=== PATIENT | female | born 1975 | race Caucasian/White ===

== ENCOUNTER → 2021-11-11 | Outpatient (CLI) | payer OTHER, SELFPAY ==
[2021-11-19 13:57] LABS: HPV APTIMA, High Risk Negative (Negative)
== END | disposition home or self-care (01) ==
PROVIDERS: PCP Family Medicine; Visit Provider Obstetrics & Gynecology
DX: Z12.4 Encounter for screening for malignant neoplasm of cervix (principal)
CPT/HCPCS: 87624; 88175; G0145

== ENCOUNTER → 2021-11-18 | Outpatient (CLI) | payer OTHER, SELFPAY ==
--- NOTE | 2021-11-18 15:52 | US_ITS ---
STUDY: ULTRASOUND OF THE FEMALE PELVIS - COMPLETE REASON FOR EXAM: Female, 46 years old. menorrhagia LMP: 11/09/2021. TECHNIQUE: Transabdominal and transvaginal scanning. TECHNICAL QUALITY: Adequate. COMPARISON: Previous ultrasound report of 10/19/2011.. FINDINGS: The uterus is anteverted and is in a midline position. The uterus measures 9.5 x 5.4 x 4.7 cm. Small nabothian cyst incidentally noted within the cervix. The endometrium measures 7 mm in thickness, and is well-defined. There is no demonstrated endometrial mass. The myometrium is inhomogeneous. At least 3 rounded hypoechoic intramural mural lesions are seen indicating multiple intramural fibroids, measuring 2.5 x 1.8 x 2.1 cm, 1.3 x 1.7 x 1.5 cm, and 1.6 x 1.5 x 1.5 cm in diameter. The right ovary is visualized. The right ovary measures 3.2 x 2.4 x 2.2 cm. Right ovary contains a 1.4 x 1.2 x 0.9 cm dominant follicle. There is no visualized right adnexal mass or complex lesion. There is normal arterial and normal venous vascularity. The left ovary is visualized. The left ovary measures 2.2 x 2.1 x 1.4 cm. There is no left ovarian cyst or ovarian mass. There is no visualized left adnexal mass or complex lesion. There is normal arterial and normal venous vascularity. There is no fluid in the cul-de-sac. Echogenic cellular debris is noted within the urinary bladder on the transvaginal scan. US/Pelvic (Non ) IMPRESSION: Multiple small uterine fibroids. Dominant follicle in the left ovary. Echogenic debris within the urinary bladder, as can be seen with cystitis. Electronically Signed: Krish Hummel MD at 3:25 EDT ,
--- NOTE | 2021-11-18 15:52 | US_ITS ---
STUDY: ULTRASOUND OF THE FEMALE PELVIS - COMPLETE REASON FOR EXAM: Female, 46 years old. menorrhagia LMP: 11/09/2021. TECHNIQUE: Transabdominal and transvaginal scanning. TECHNICAL QUALITY: Adequate. COMPARISON: Previous ultrasound report of 10/19/2011.. FINDINGS: The uterus is anteverted and is in a midline position. The uterus measures 9.5 x 5.4 x 4.7 cm. Small nabothian cyst incidentally noted within the cervix. The endometrium measures 7 mm in thickness, and is well-defined. There is no demonstrated endometrial mass. The myometrium is inhomogeneous. At least 3 rounded hypoechoic intramural mural lesions are seen indicating multiple intramural fibroids, measuring 2.5 x 1.8 x 2.1 cm, 1.3 x 1.7 x 1.5 cm, and 1.6 x 1.5 x 1.5 cm in diameter. The right ovary is visualized. The right ovary measures 3.2 x 2.4 x 2.2 cm. Right ovary contains a 1.4 x 1.2 x 0.9 cm dominant follicle. There is no visualized right adnexal mass or complex lesion. There is normal arterial and normal venous vascularity. The left ovary is visualized. The left ovary measures 2.2 x 2.1 x 1.4 cm. There is no left ovarian cyst or ovarian mass. There is no visualized left adnexal mass or complex lesion. There is normal arterial and normal venous vascularity. There is no fluid in the cul-de-sac. Echogenic cellular debris is noted within the urinary bladder on the transvaginal scan. US/Transvaginal Non- IMPRESSION: Multiple small uterine fibroids. Dominant follicle in the left ovary. Echogenic debris within the urinary bladder, as can be seen with cystitis. Electronically Signed: Krish Hummel MD at 3:25 EDT ,
== END | disposition home or self-care (01) ==
LOC: US 15:50
PROVIDERS: PCP Family Medicine; Referring Provider Obstetrics & Gynecology; Visit Provider Obstetrics & Gynecology
DX: N92.0 Excessive and frequent menstruation with regular cycle (principal)
CPT/HCPCS: 76830; 76856

== ENCOUNTER → 2023-11-07 | Outpatient (CLI) | payer OTHER, SELFPAY ==
[2023-11-14 10:10] LABS: HPV APTIMA, High Risk Negative (Negative)
== END | disposition home or self-care (01) ==
LOC: LABSPEC 14:51
PROVIDERS: PCP Family Medicine; Referring Provider Obstetrics & Gynecology; Visit Provider Obstetrics & Gynecology
DX: Z12.4 Encounter for screening for malignant neoplasm of cervix (principal)
CPT/HCPCS: 87624; 88175; G0145

== ENCOUNTER → 2023-11-08 | Outpatient (CLI) | payer OTHER, SELFPAY ==
[2023-11-08 09:05] LABS: Vitamin D,25 Hydroxy 31.2 ng/mL
[2023-11-08 09:13] LABS: Cholesterol 235 mg/dL (200); Estradiol 18.7 pg/mL; Follicle Stimulating Hormone 16.1 mIU/mL; Glucose 91 mg/dL (74-106); High Density Lipoprotein 69 mg/dL; Luteinizing Hormone 11.3 mIU/mL; Triglycerides 91 mg/dL; Very Low Density Lipoprotein 18 mg/dL (5-40)
== END | disposition home or self-care (01) ==
PROVIDERS: PCP Family Medicine; Referring Provider Obstetrics & Gynecology; Visit Provider Obstetrics & Gynecology
DX: Z13.220 Encounter for screening for lipoid disorders (principal); N92.4 Excessive bleeding in the premenopausal period; Z13.1 Encounter for screening for diabetes mellitus; Z13.21 Encounter for screening for nutritional disorder
CPT/HCPCS: 36415; 80061; 82306; 82670; 82947; 83001; 83002; 84443

== ENCOUNTER → 2023-11-16 | Outpatient (CLI) | payer OTHER, SELFPAY ==
--- NOTE | 2023-11-16 16:26 | US_ITS ---
STUDY: ULTRASOUND OF THE FEMALE PELVIS - COMPLETE REASON FOR EXAM: Female, 48 years old. perimenopausal bleeding LMP: 08/05/2023 TECHNIQUE: Transabdominal and Transvaginal TECHNICAL QUALITY: Limited. Examination limited by bowel gas. COMPARISON: None. FINDINGS: The uterus is anteverted and is in a midline position. The uterus measures 10.2 x 5.4 x 5.1 cm. There is a Nabothian cyst of the cervix. Small amount of fluid in the endocervical canal. The endometrium measures 5 mm in thickness, and is hyperechoic. There is no demonstrated endometrial mass. Uterus is diffusely heterogeneous which can be seen with diffuse leiomyomatous change. There is a focal 8 mm fibroid. The right ovary is visualized. The right ovary measures 2.4 x 1.3 x 2.0 cm. There is a 1.6 cm cyst. There is no visualized right adnexal mass or complex lesion. There is normal arterial and normal venous vascularity. The left ovary is visualized. The left ovary measures 3.4 x 2.4 x 2.4 cm. There is a 1.9 cm cyst. There is no visualized left adnexal mass or complex lesion. There is normal arterial and normal venous vascularity. There is no fluid in the cul-de-sac. US/Pelvic w/ Transvaginal IMPRESSION: Limited as above. Enlarged heterogeneous uterus most likely related to diffuse leiomyomatous change. Small amount of fluid in the endocervical canal. Endometrial echoes are not thickened. Electronically Signed: Lupillo Gonzales MD at 23:49 EDT ,
== END | disposition home or self-care (01) ==
LOC: US 16:26
PROVIDERS: PCP Family Medicine; Referring Provider Obstetrics & Gynecology; Visit Provider Obstetrics & Gynecology
DX: N92.4 Excessive bleeding in the premenopausal period (principal)
CPT/HCPCS: 76830; 76856

== ENCOUNTER → 2023-12-11 | Outpatient (CLI) | payer OTHER, SELFPAY ==
--- NOTE | 2023-12-11 | EMB_PTH ---
PATHOLOGY RESULTS PATIENT: PEDRO LUIS WALLER LOC: [facility] U#:[id number] AGE/SX: 48/F ROOM: RE12/11/[address]: Dr. Darlene Murry DO : 1975 BED: DIS: 12/11/2023 SPEC #: [id number] RECD: 12/11/23 13:10 STATUS: DENISE ROSARIO #: [id number] SARTHAK: 12/11/23 00:[address]: Darlene Murry DEPT: SURGICAL PATHOLOGY RECD BY: Andrea Cuevas ENTERED: 12/11/23 13:10 SP TYPE: ENDOM BX/C OTHR DR: Dr. Dalton Andrea MD Tissues: Endometrium, NOS Procedures: Surgery Specimen Level IV HEADER OPERATION: Endometrial biopsy PRE-OP DIAGNOSIS: Abnormal uterine bleeding TISSUE SUBMITTED: Endometrial lining MICROSCOPIC DIAGNOSIS Endometrial biopsy: Proliferative endometrium. A few fragments of benign endocervical mucosa and mucous. See comment. SJ.mr 12/12/2023 COMMENT The specimen predominantly consists of mucoid tissue. MICROSCOPIC DESCRIPTION Slides are reviewed. GROSS DESCRIPTION Received is one container labeled with the patient's name and not further designated. The specimen consists of multiple irregular fragments of ruiz soft tissue mixed with mucoid tissue that in aggregate measure 2.5 x 1.0 x 0.1 cm. The specimen is totally submitted in one cassette. 12/11/2023 TC:4 CPT:70894
--- OUTSIDE RECORDS SUMMARY | 2023-12-11 11:00 | XMS RPT_ITS | CCD ---
Author Organization [facility] Care Team Providers Care T[employer] Finisher Name Role Phone PROVIDER, UNKNOWN Attending Unavailable PROVIDER, UNKNOWN Admitting Unavailable PROVIDER, UNKNOWN Attending Unavailable PROVIDER, UNKNOWN Admitting Unavailable PATIENT, SELF Referring Unavailable Bill Blackwell Unavailable Paz Asif MD Unavailable Deb Haque Unavailable Daniel Bowden MD Primary Care Provider Bill Blackwell Unavailable Paz Asif MD Unavailable Rip VILLAR, Deb Unavailable Daniel Bowden MD Primary Care Provider Bill Blackwell Unavailable Paz Asif MD Unavailable Deb Haque Unavailable Daniel Bowden MD Primary Care Provider KIMMIE HALE Attending Unavailable DANIEL BOWDEN Primary Care Unavailable JOHANNA CRONIN Referring Unavailable DANIEL BOWDEN Primary Care Unavailable DANIEL BOWDEN Primary Care Unavailable DANIEL BOWDEN Primary Care Unavailable Allergies Allergy Classification Reported Allergen(s) Allergy Type Date of Onset Reaction(s) Facility (20 sources) Butorphanol; Translations: [BUTORPHANOL] Drug Allergy 1 Mental Status Change [facility] Medications Current Medications Medication Drug Class(es) Dates Sig (Normalized) Sig (Original) hydrOXYzine hydrochloride 25 mg oral tablet (3 sources) Antihistamine Start: 03-27-2023 End: 09-23-2023 take 1 tablet by mouth at bedtime as needed for anxiety hydrOXYzine HCl (ATARAX) 25 mg tablet Indications: Anxiety with depression , Difficulty sleeping Take 1 tablet by mouth at bedtime as needed for anxiety. 30 tablet 5 03/27/2023 09/23/2023 Active Start: 08-31-2022 End: 09-30-2022 take 1 tablet by mouth at bedtime as needed for anxiety hydrOXYzine HCl (ATARAX) 25 mg tablet Indications: Anxiety with depression , Difficulty sleeping Take 1 tablet by mouth at bedtime as needed for anxiety. 30 tablet 5 08/31/2022 09/30/2022 Active Comment on above: Take 1 tablet by dominick th at bedtime as needed for anxiety. ibuprofen 800 mg oral tablet (19 sources) Nonsteroidal Anti-inflammatory Drug Start: take 1 tablet by mouth every eight hours as needed ibuprofen (MOTRIN) 800 mg ORAL tablet Take 1 tablet by mouth three times daily as needed. FOR PAIN. TAKE WITH FOOD. 30 tablet 0 02/03/2011 Active Comment on above: Take 1 tablet by dominick th three times daily as needed. FOR PAIN. TAKE WITH FOOD. iv contrast (will be provided with radiology test) (1 source) Start: End: iv contrast (will be provided with radiology test) MRI ankle RT Inject, intravenously, once for 1 dose. No IV access, insert saline lock prior to the beginning of sedation, infusion, injection of imaging exam. Discontinue saline lock post exam. If Pt. has a central line or IVAD, may access for administration according to line specific nursing protocol. Once exam is complete flush line and de-access according to line specific nursing protocol in the MR contrast administration guidelines link. 1 Each 0 09/02/2022 09/03/2022 Active Comment on above: MRI ankle RT Inject, intravenously, once for 1 dose. No IV access, insert saline lock prior to the beginning of sedation, infusion, injection of imaging exam. Discontinue saline lock post exam. If Pt. has a central line or IVAD, may access for administration according to line specific nursing protocol. Once exam is complete flush line and de-access according to line specific nursing protocol in the MR contrast administration guidelines link. nitrofurantoin, macrocrystals 25 mg / nitrofurantoin, monohydrate 75 mg oral capsule (1 source) Nitrofuran Antibacterial Start: 023 End: 023 take 1 capsule by mouth twice daily nitrofurantoin monohydrate and macrocrystal (MACROBID) 100 mg capsule Indications: Acute cystitis without hematuria Take 1 capsule by mouth two times a day for 5 days. 10 capsule 0 12/27/2022 01/01/2023 Active Comment on above: Take 1 capsule by mo [facility] two times a day for 5 days. nystatin 293134 unt/ml topical cream (3 sources) Polyene Antifungal Start: nystatin (MYCOSTATIN) 307231 UNIT/GM cream Apply topically 2 times daily. Apply thin layer to affected area. 30 g 3 05/02/2019 Active PARoxetine hydrochloride 10 mg oral tablet (11 sources) Serotonin Reuptake Inhibitor Start: 024 End: 025 take 1 tablet by mouth once daily PARoxetine (PAXIL) 10 mg tablet Indications: Anxiety with depression , Night sweats Take 1 tablet by mouth once daily. Take with Paxil 40 mg tablet. 30 tablet 5 11/29/2023 05/27/2024 Active Start: 03-27-2023 End: 03-26-2024 take 1 tablet by mouth once daily PARoxetine (PAXIL) 40 mg tablet Indications: Hot flashes , Anxiety with depression Take 1 tablet by mouth once daily. 90 tablet 3 03/27/2023 03/26/2024 Active Start: 08-31-2022 End: 09-30-2022 take 1 tablet by mouth once daily PARoxetine (PAXIL) 40 mg tablet Indications: Hot flashes , Anxiety with depression Take 1 tablet by mouth once daily. 30 tablet 5 08/31/2022 Active Comment on above: Take 1 tablet by [facility] once daily. phentermine hydrochloride 37.5 mg oral tablet (1 source) Sympathomimetic Amine Anorectic Start: 2021 End: 2021 take 1 tablet by mouth once daily Phentermine HCl (ADIPEX-P) 37.5 mg tablet Indications: Obesity, Class II, BMI 35-39.9 Take 1 tablet by mouth once daily for 30 days. 30 tablet 0 06/17/2021 07/17/2021 Active Comment on above: Take 1 tablet by dominick once daily for 30 days. tirzepatide 10 mg/0.5 mL (20 mg/mL) subcutaneous compounded injection (1 source) inject 10 mg by subcutaneous injection every week tirzepatide 10 mg/0.5 mL (20 mg/mL) subcutaneous compounded injection Inject 10 mg subcutaneously one time a week. Active valACYclovir 1000 mg oral tablet (3 sources) Herpesvirus Nucleoside Analog DNA Polymerase Inhibitor, Herpes Simplex Virus Nucleoside Analog DNA Polymerase Inhibitor, Herpes Zoster Virus Nucleoside Analog DNA Polymerase Inhibitor Start: 2019 take 2 tablets by mouth once valACYclovir (VALTREX) 1 GM tablet take 2 tablets by mouth ONE TIME DOSE 0 11/09/2019 Active Completed/Discontinued Medications Medication Drug Class(es) Dates Sig (Normalized) Sig (Original) hydroCHLOROthiazide 25 mg / triamterene 37.5 mg oral capsule (20 sources) Potassium-spari ng Diuretic, Thiazide Diuretic Start: 04-14-2021 End: 11-28-2024 take 1 capsule by mouth once daily triamterene-hydro CHLOROthiazide (DYAZIDE) 37.5-25 mg per capsule Indications: Essential hypertension Take 1 capsule by mouth once daily. 30 capsule 11/28/2023 11/29/2023 Discontinued Start: 03-16-2018 take 1 capsule by mouth once triamterene-hydrochlorothiazide (DYAZIDE ) 37.5-25 MG per capsule Take 1 Capsule by mouth. 0 03/16/2018 Active Comment on above: Take 1 capsule by mo [facility] once daily. lisinopril 10 mg oral tablet (17 sources) Angiotensin Converting Enzyme Inhibitor Start: 2 End: 5 take 1 tablet by mouth once daily lisinopril (ZESTRIL) 10 mg tablet Indications: Essential hypertension Take 1 tablet by mouth once daily. 30 tablet 11/28/2023 11/29/2023 Discontinued Comment on above: Take 1 tablet by dominick once daily. sertraline 100 mg oral tablet (16 sources) Serotonin Reuptake Inhibitor Start: 9 End: 3 take 1 tablet by mouth once daily sertraline (ZOLOFT) 50 mg tablet Take 1 tablet by mouth once daily. Take along with the 100 mg tablet for a total of 150 mg daily 90 tablet 3 04/14/2021 08/31/2022 Discontinued Start: 09-12-2018 End: 08-31-2022 take 1 tablet by mouth once daily sertraline (ZOLOFT) 100 mg tablet Indications: SHASHI (generalized anxiety disorder) Take 1 tablet by mouth once daily. 90 tablet 3 04/14/2021 08/31/2022 Discontinued Comment on above: Take 1 tablet by dominick th once daily. Take along with the 100 mg tablet for a total of 150 mg daily Take 1 tablet by dominick th once daily. Problems Active Problems Problem Classification Problem Date Documented Date Episodic/Chronic Anxiety disorders (5 sources) Mixed anxiety and depressive disorder; Translations: [Other specified anxiety disorders] Onset: 11-29-2023 10-03-2022 Chronic Essential hypertension (20 sources) Essential hypertension; Translations: [Essential (primary) hypertension] Onset: 02-14-2017 05-09-2019 Chronic Nonmalignant breast conditions (20 sources) Hypertrophy of breast; Translations: [Hypertrophy of breast] Onset: 12-23-2016 05-09-2019 Episodic Other connective tissue disease (3 sources) Ganglion of foot; Translations: [Ganglion, unspecified ankle and foot] 09-02-2022 Episodic Other female genital disorders (1 source) Vaginal dryness; Translations: [Other specified noninflammatory disorders of vagina] 10-05-2022 Episodic Other female genital disorders (1 source) Other specified noninflammatory disorders of vagina; Translations: [Vaginal dryness] Onset: 11-29-2023 Episodic Other female genital disorders (1 source) Enlarged uterus; Translations: [Hypertrophy of uterus] 11-29-2023 Episodic Other nutritional; endocrine; and metabolic disorders (1 source) Obese class II; Translations: [Obesity, unspecified] Chronic Other nutritional; endocrine; and metabolic disorders (1 source) Obesity; Translations: [Class 1 obesity with body mass index (BMI) of 31.0 to 31.9 in adult, unspecified obesity type, unspecified whether serious comorbidity present] 11-29-2023 Chronic Other screening for suspected conditions (not mental disorders or infectious disease) (6 sources) Patient encounter status; Translations: [Encounter for screening mammogram for malignant neoplasm of breast] Episodic Other skin disorders (1 source) Night sweats; Translations: [Generalized hyperhidrosis] 11-29-2023 Episodic Other skin disorders (1 source) Nodule of skin of foot; Translations: [Localized swelling, mass and lump, unspecified lower limb] 11-29-2023 Episodic Residual codes; unclassified (3 sources) Flushing; Translations: [Flushing] 10-03-2022 Episodic Residual codes; unclassified (1 source) Difficulty sleeping ; Translations: [Sleep disorder, unspecified] 03-27-2023 Episodic Residual codes; unclassified (1 source) Sleep disorder, unspecified; Translations: [Difficulty sleeping] Onset: 11-29-2023 Episodic Residual codes; unclassified (1 source) Flushing; Translations: [Hot flashes] Onset: 11-29-2023 Episodic Unclassified (1 source) NO SHOW 12-27-2022 Urinary tract infections (1 source) Acute cystitis; Translations: [Acute cystitis without hematuria] 12-27-2022 Episodic Past or Other Problems Problem Classification Problem Date Documented Da te Episodic/Chronic Other connective tissue disease (1 source) Ganglion, unspecified ankle and foot; Translations: [Ganglion cyst of foot] Onset: 12-29-2022 Episodic Results Test Name Value Interpretation Reference Range Facility [facility] 11-29-2023 [facility] ROXANE FREDERICK ([id number]) 1975 F Date Time Provider Department 11/29/23 10:40 AM [facility]MIE HALE [facility] During your visit today, we recorded the following information about you: Pulse Respiration Blood pressure Weight 83/minute 16/minute 104/72 73.4 kg Height 1.535 m Kimmie Hale APRN.CNP 11/29/2023 12:54 PM Signed This is a 48 year old female who presents today with: Patient presents with: Physical HISTORY OF PRESENT ILLNESS: Roxane Frederick is a 48 year old female. Patient presents with: Physical Wellness Exam Diet: Eating a well balanced diet. Exercise: [place] Vision: Had Lasik surgery. Dental: Due for dental. Sleep:8 hours per night. Mood: See below. Following with Daniels weight loss. Taking tirzepatide. Doing well with medication. Watching diet. HTN: Taking lisinopril 10 mg daily and triamterene/HCTZ 37.5/25 mg daily . Not currently checking blood pressure at home. Denies chest pain, palpitations, dizziness, or edema. Depression/SHASHI: Taking Paxil 40 mg daily. Hydroxyzine 25 mg prn. Denies any increased sadness or SI/HI. Had pap last week with ENROLLMENT MANAGER at [facility], had transvaginal US completed, was told she had enlarged uterus. Will be having biopsy next week. Night sweats started last week. At night, waking up soaking wet with sweat. Some lower abdominal fullness. TSH WNL. Right foot cyst, following with podiatry, attempted to aspirate without success. Cyst has moved. Causing pain. Has follow up soon. Mammogram: Due this year Colonoscopy:Cologuar d September 2022 Negative due in 2025 Pap: Last Pap January. [facility] ENROLLMENT MANAGER. PAST MEDICAL HISTORY: PAST MEDICAL HISTORY Diagnosis Date Hypertension Macromastia Needs 3D tulio for screening, causing neck, back problems, headaches, shoulder pain PAST SURGICAL HISTORY Procedure Laterality Date ANKLE SURGERY HX 06/20/2012 pins put in HYSTEROSCOPY BI TUBE OCCLUSION W/PERM IMPLNTS LAPAROSCOPY DIAGNOSTIC removal of tubes bilaterally. dilation of cervix to relieve hematometria PAST SURGICAL HISTORY OF N/A 01/10/2020 Tummy Tuck REDUCTION OF LARGE BREAST Bilateral 01/10/2020 S THERMACHOICE UTERINE BALLOON TONSILLECTOMY AND ADENOIDECTOMY AGE 10/> ALLERGIES Stadol [Butorphanol] MEDICATIONS Current Outpatient Medications Medication Sig triamterene-hydroCHL OROthiazide (DYAZIDE) 37.5-25 mg per capsule Take 1 capsule by mouth once daily. lisinopril (ZESTRIL) 10 mg tablet Take 1 tablet by mouth once daily. PARoxetine (PAXIL) 40 mg tablet Take 1 tablet by mouth once daily. ibuprofen (MOTRIN) 800 mg ORAL tablet Take 1 tablet by mouth three times daily as needed. FOR PAIN. TAKE WITH FOOD. No current facility-administere d medications for this visit. FAMILY HISTORY Problem Relation Age of Onset None Mother Heart Father Congenital disorder Hypertension Father Social History Tobacco Use Smoking status: Never Smokeless tobacco: Never Substance Use Topics Alcohol use: Yes Comment: Socially Drug use: No REVIEW OF SYSTEMS GENERAL: Night sweats/hot flashes HEENT: Negative for frequent or significant headaches, No changes in hearing or vision. NECK: Negative for lumps, goiter, pain and significant neck swelling RESPIRATORY: Negative for cough, hemoptysis, wheezing, dyspnea or shortness of breath CARDIOVASCULAR: Negative for chest pain, leg swelling, orthopnea, or palpitations GI: No nausea, vomiting, or diarrhea/constipatio n. No hematochezia/melena. No heartburn or reflux symptoms. : No history of dysuria, frequency or incontinence MUSCULOSKELETAL: Negative for joint pain or swelling. SKIN: Negative for lesions, rash, and itching ENDOCRINE: Negative for cold or heat intolerance, polyuria, polydipsia and goiter NEURO: No history of headaches, syncope, paralysis, seizures or tremors MOOD: Negative for depression, anxiety, or suicidal ideation. EXAM: BP 104/72 Pulse 83 Resp 16 Ht 153.5 cm (5' 0.43 ) Wt 73.4 kg (161 lb 13.1 oz) LMP 04/27/2013 SpO2 98% BMI 31.15 kg/m? PHYSICAL EXAM: General Appearance: Well appearing, alert, in no acute distress, well-hydrated, well nourished. Skin: Skin color, texture, turgor normal, no suspicious rashes or lesions. Head: Normocephalic, no masses, lesions, tenderness or abnormalities. Eyes: Anicteric sclera. Pupils are equally round and reactive to light. Extraocular movements are intact. Ears: External ears normal, canals clear. TMs pearly tucker Neck: Supple, no adenopathy; thyroid symmetric, normal size, no bruits. Lungs: Lungs clear to auscultation. No wheezing, rhonchi, rales. Heart: RRR without murmur, gallop, or rubs. No ectopy. Abdomen: Abdomen soft, non-tender. Bowel sounds normal. No masses, organomegaly. Extremities: No deformities, edema, skin discoloration, clubbing or cyanos (more content not included)... Normal [facility] ASP/INJ GANGLION RTon US ASP/INJ GANGLION RT * * *Final Report* * * DATE OF EXAM: Dec 29 2022 1:52PM [facility] 1157 - US ASP/INJ GANGLION RT / PROCEDURE REASON: Ganglion cyst of foot * * * * Physician Interpretation * * * * MSK_US ULTRASOUND GUIDED RIGHT DORSOLATERAL FOOT GANGLION CYST ASPIRATION, FENESTRATION, AND THERAPEUTIC INJECTION INDICATION: The patient is a 47 year old female who presented for aspiration and therapeutic injection of a right dorsolateral foot ganglion cyst. CONSENT: The risks, benefits, treatment options, potential complications and personnel to be involved were discussed with the patient. All questions were answered and consent was obtained. The patient indicated willingness to proceed. GENERAL: a) Pre-procedure Sign-in: Safety Checklist Performed Yes b) Positioning: The patient was placed supine on the ultrasound table. c) Ultrasound guidance was used to target the ganglion cyst in the right dorsolateral forefoot. The right dorsolateral forefoot was then sterilely prepped and draped. Ultrasound images were saved and sent to a permanent archive. d) Time Out: A time out was performed immediately prior to procedure start. Procedure Start Time / Timeout Time: 13:25 e) Anesthesia Type: Local anesthesia: 3 mL 1% Lidocaine PRE-PROCEDURE IMAGING: Imaging was performed for the purposes of localization. PROCEDURE: a) Procedure Details: A 22g needle was inserted into the ganglion cyst using ultrasound guidance after local anesthesia. 1 mL of gelatinous fluid was aspirated. Additional 1% lidocaine was deposited into an adjacent to the cyst and the 22-gauge needle was used to fenestrate the cyst rolon and septae. Next, an 18-gauge needle was inserted into the cyst and approximately 2 mL of gelatinous fluid was aspirated. Finally, 1 mL of dexamethasone was injected into the cyst. The needle was removed. Images were stored to the digital archive documenting needle position. b) Injectate Contents: 1 mL Dexamethasone Sodium Phosphate (4 mg/ml) c) Estimated Blood Loss: 0 mL d) Removed Specimens: Approximately 3 mL gelatinous cyst fluid, discarded. POST PROCEDURE: a) Hemostasis: Hemostasis was achieved using light manual compression. b) Sign-out: Communication Performed N/A c) Procedure End Time: 13:38 d) Conclusion: 1. Post-Procedure instructions:Verbal instructions were given. 2. The patient was discharged from the radiology department in stable condition. COMPLICATIONS: a) Significant Patient Complication: None b) Complications during the procedure: None RESULTS: Uncomplicated right foot dorsolateral ganglion cyst aspiration, fenestration, and therapeutic injection. IMPRESSION: SUCCESSFUL ULTRASOUND GUIDED ASPIRATION, FENESTRATION, AND INJECTION OF THE RIGHT DORSOLATERAL FOOT GANGLION CYST, DESCRIBED ABOVE. Attending Radiologist: Dr. Mtai Akins MD Combination Operator: Dr. Kanu Boothe MD The procedure was performed by the regulatory affairs assistant, and the attending radiologist personally supervised the entire procedure. Instructor Military Science: [facility] Transcribe Date/Time: Dec 29 2022 2:35P Dictated by : KANU BOOTHE MD This examination was interpreted and the report reviewed and electronically signed by: MATI AKINS MD on Dec 29 2022 3:03PM EST [id number] Normal [facility] US Guidance for aspiration o f cyst of Unspecified body regionon 12-29-2022 IMPRESSION: SUCCESSFUL ULTRASOUND GUIDED ASPIRATION, FENESTRATION, AND INJECTION OF THE RIGHT DORSOLATERAL FOOT GANGLION CYST, DESCRIBED ABOVE. Attending Radiologist: Dr. Mati Akins MD Combination Operator: Dr. Kanu Boothe MD The procedure was performed by the regulatory affairs assistant, and the attending radiologist personally supervised the entire procedure. Instructor Military Science: [facility] Transcribe Date/Time: Dec 29 2022 2:35P Dictated by : KANU BOOTHE MD This examination was interpreted and the report reviewed and electronically signed by: MATI AKINS MD on Dec 29 2022 3:03PM EST DIVISION OF RADIOLOGY * * *Final Report* * * DATE OF EXAM: Dec 29 2022 1:52PM [facility]7 - US ASP/INJ GANGLION RT / PROCEDURE REASON: Ganglion cyst of foot * * * * Physician Interpretation * * * * MSK_US ULTRASOUND GUIDED RIGHT DORSOLATERAL FOOT GANGLION CYST ASPIRATION, FENESTRATION, AND THERAPEUTIC INJECTION INDICATION: The patient is a 47 year old female who presented for aspiration and therapeutic injection of a right dorsolateral foot ganglion cyst. CONSENT: The risks, benefits, treatment options, potential complications and personnel to be involved were discussed with the patient. All questions were answered and consent was obtained. The patient indicated willingness to proceed. GENERAL: a) Pre-procedure Sign-in: Safety Checklist Performed Yes b) Positioning: The patient was placed supine on the ultrasound table. c) Ultrasound guidance was used to target the ganglion cyst in the right dorsolateral forefoot. The right dorsolateral forefoot was then sterilely prepped and draped. Ultrasound images were saved and sent to a permanent archive. d) Time Out: A time out was performed immediately prior to procedure start. Procedure Start Time / Timeout Time: 13:25 e) Anesthesia Type: Local anesthesia: 3 mL 1% Lidocaine PRE-PROCEDURE IMAGING: Imaging was performed for the purposes of localization. PROCEDURE: a) Procedure Details: A 22g needle was inserted into the ganglion cyst using ultrasound guidance after local anesthesia. 1 mL of gelatinous fluid was aspirated. Additional 1% lidocaine was deposited into an adjacent to the cyst and the 22-gauge needle was used to fenestrate the cyst rolon and septae. Next, an 18-gauge needle was inserted into the cyst and approximately 2 mL of gelatinous fluid was aspirated. Finally, 1 mL of dexamethasone was injected into the cyst. The needle was removed. Images were stored to the digital archive documenting needle position. b) Injectate Contents: 1 mL Dexamethasone Sodium Phosphate (4 mg/ml) c) Estimated Blood Loss: 0 mL d) Removed Specimens: Approximately 3 mL gelatinous cyst fluid, discarded. POST PROCEDURE: a) Hemostasis: Hemostasis was achieved using light manual compression. b) Sign-out: Communication Performed N/A c) Procedure End Time: 13:38 d) Conclusion: 1. Post-Procedure instructions:Verbal instructions were given. 2. The patient was discharged from the radiology department in stable condition. COMPLICATIONS: a) Significant Patient Complication: None b) Complications during the procedure: None RESULTS: Uncomplicated right foot dorsolateral ganglion cyst aspiration, fenestration, and therapeutic injection. DIVISION OF RADIOLOGY Provider, [facility] [place] - 12/29/2022 * * *Final Report* * * DATE OF EXAM: Dec 29 2022 1:52PM [facility] - US ASP/INJ GANGLION RT / PROCEDURE REASON: Ganglion cyst of foot * * * * Physician Interpretation * * * * MSK_US ULTRASOUND GUIDED RIGHT DORSOLATERAL FOOT GANGLION CYST ASPIRATION, FENESTRATION, AND THERAPEUTIC INJECTION INDICATION: The patient is a 47 year old female who presented for aspiration and therapeutic injection of a right dorsolateral foot ganglion cyst. CONSENT: The risks, benefits, treatment options, potential complications and personnel to be involved were discussed with the patient. All questions were answered and consent was obtained. The patient indicated willingness to proceed. GENERAL: a) Pre-procedure Sign-in: Safety Checklist Performed Yes b) Positioning: The patient was placed supine on the ultrasound table. c) Ultrasound guidance was used to target the ganglion cyst in the right dorsolateral forefoot. The right dorsolateral forefoot was then sterilely prepped and draped. Ultrasound images were saved and sent to a permanent archive. d) Time Out: A time out was performed immediately prior to procedure start. Procedure Start Time / Timeout Time: 13:25 e) Anesthesia Type: Local anesthesia: 3 mL 1% Lidocaine PRE-PROCEDURE IMAGING: Imaging was performed for the purposes of localization. PROCEDURE: a) Procedure Details: A 22g needle was inserted into the ganglion cyst using ultrasound guidance after local anesthesia. 1 mL of gelatinous fluid was aspirated. Additional 1% lidocaine was deposited into an adjacent to the cyst and the 22-gauge needle was used to fenestrate the cyst rolon and septae. Next, an 18-gauge needle was inserted into the cyst and approximately 2 mL of gelatinous fluid was aspirated. Finally, 1 mL of dexamethasone was injected into the cyst. The needle was removed. Images were stored to the digital archive documenting needle position. b) Injectate Contents: 1 mL Dexamethasone Sodium Phosphate (4 mg/ml) c) Estimated Blood Loss: 0 mL d) Removed Specimens: Approximately 3 mL gelatinous cyst fluid, discarded. POST PROCEDURE: a) Hemostasis: Hemostasis was achieved using light manual compression. b) Sign-out: Communication Performed N/A c) Procedure End Time: 13:38 d) Conclusion: 1. Post-Procedure instructions:Verbal instructions were given. 2. The patient was discharged from the radiology department in stable condition. COMPLICATIONS: a) Significant Patient Complication: None b) Complications during the procedure: None RESULTS: Uncomplicated right foot dorsolateral ganglion cyst aspiration, fenestration, and therapeutic injection. IMPRESSION IMPRESSION: SUCCESSFUL ULTRASOUND GUIDED ASPIRATION, FENESTRATION, AND INJECTION OF THE RIGHT DORSOLATERAL FOOT GANGLION CYST, DESCRIBED ABOVE. Attending Radiologist: Dr. Mati Akins MD Combination Operator: Dr. Kanu Boothe MD The procedure was performed by the regulatory affairs assistant, and the attending radiologist personally supervised the entire procedure. Instructor Military Science: [facility] HOSPITAL[facility]ia Transcribe Date/Time: Dec 29 2022 2:35P Dictated by : KANU BOOTHE MD This examination was interpreted and the report reviewed and electronically signed by: MATI AKINS MD on Dec 29 2022 3:03PM EST [facility] Radiology Study observation (narrative) [facility] US Guidance for aspiration o f cyst of Unspecified body regionOrdered By: Ccf Provider on 12-29-2022 [facility] ic MG Breast - left Diagnostic for implanton 09-30-2021 IMPRESSION: PROBABLY BENIGN - SHORT TERM INTERVAL FOLLOW-UP RECOMMENDED The multiple coarse calcifications in the left breast are probably benign. A follow-up mammogram in 6 months is recommended to demonstrate stability. Myles monroy/olga:09/30/2021 14:55:23 Assistant Hairstylist(s): RT Jose(R)(M), [facility] BI-RADS: 3 Probably benign finding - short term interval follow-up recommended Multiple national specialty organizations have released breast cancer screening guidelines for women at average risk for developing breast cancer - guidelines that are based on both evidence and opinion, yet differ on when to start and how often to screen for breast cancer. With representation from Breast Imaging, Internal Medicine, Women's Health, Family Medicine, and Medical/Surgical Oncology, the [facility] has carefully reviewed the data and reached the following consensus: 1) All women should engage in shared decision-making with their providers to decide when to start and how often to screen; 2) All women should have the opportunity to start screening mammography at age 40; 3) For women ages 45-55, we recommend annual screening mammograms; 4) For women ages 55 and over, we support both the transition from an annual to a biennial interval if this aligns more with patient's values and preferences, or continuation with annual screening; 5) All women should discuss with their providers when to stop screening mammograms. Instructor Military Science: Olga Transcribe Date/Time: Sep 30 2021 2:16P Dictated by: MYLES RAMIREZ MD This examination was interpreted and the report reviewed and electronically signed by: MYLES RAMIREZ MD on Sep 30 2021 2:55PM EST ZZZ_DO_NOT_USE_D IVISION OF RADIOLOGY * * *Final Report* * * DATE OF EXAM: Sep 30 2021 2:29PM [facility] 0621 - [facility] DIAGNOSTIC LT / PROCEDURE REASON: Abnormal mammogram * * * * Physician Interpretation * * * * RESULT: #[id number] - [facility] DIAGNOSTIC LT UNILATERAL LEFT DIGITAL DIAGNOSTIC MAMMOGRAM WITH CAD: 09/30/2021 HISTORY: Abnormal Mammogram / Call back/abnormal mamm: Left. RESULT: TECHNIQUE: The study was acquired using full field digital technology and interpreted from soft copy. Current study was also evaluated with a Computer Aided Detection (CAD). Comparison is made to exams dated: 09/14/2021 mammogram, 07/09/2019 mammogram, 07/09/2019 mammogram, and 06/20/2019 mammogram - [facility]. The tissue of left breast is heterogeneously dense. This may lower the sensitivity of mammography. The patient is status post reduction left breast. The left breast has post-operative findings. There are multiple coarse calcifications in the left breast upper inner aspect middle depth. No other significant masses or calcifications are seen in the breast. ZZZ_[id number]_USE_D IVISION OF RADIOLOGY Provider, [facility] - 09/30/2021 * * *Final Report* * * DATE OF EXAM: Sep 30 2021 2:29PM [facility] 0621 - [facility] DIAGNOSTIC LT / PROCEDURE REASON: Abnormal mammogram * * * * Physician Interpretation * * * * RESULT: #[id number] - [facility] DIAGNOSTIC LT UNILATERAL LEFT DIGITAL DIAGNOSTIC MAMMOGRAM WITH CAD: 09/30/2021 HISTORY: Abnormal Mammogram / Call back/abnormal mamm: Left. RESULT: TECHNIQUE: The study was acquired using full field digital technology and interpreted from soft copy. Current study was also evaluated with a Computer Aided Detection (CAD). Comparison is made to exams dated: 09/14/2021 mammogram, 07/09/2019 mammogram, 07/09/2019 mammogram, and 06/20/2019 mammogram - [facility]. The tissue of left breast is heterogeneously dense. This may lower the sensitivity of mammography. The patient is status post reduction left breast. The left breast has post-operative findings. There are multiple coarse calcifications in the left breast upper inner aspect middle depth. No other significant masses or calcifications are seen in the breast. IMPRESSION IMPRESSION: PROBABLY BENIGN - SHORT TERM INTERVAL FOLLOW-UP RECOMMENDED The multiple coarse calcifications in the left breast are probably benign. A follow-up mammogram in 6 months is recommended to demonstrate stability. Myles monroy/olga:09/30/2021 14:55:23 Assistant Hairstylist(s): RT Jose(R)(M), [facility] BI-RADS: 3 Probably benign finding - short term interval follow-up recommended Multiple national specialty organizations have released breast cancer screening guidelines for women at average risk for developing breast cancer - guidelines that are based on both evidence and opinion, yet differ on when to start and how often to screen for breast cancer. With representation from Breast Imaging, Internal Medicine, Women's Health, Family Medicine, and Medical/Surgical Oncology, the [facility] has carefully reviewed the data and reached the following consensus: 1) All women should engage in shared decision-making with their providers to decide when to start and how often to screen; 2) All women should have the opportunity to start screening mammography at age 40; 3) For women ages 45-55, we recommend annual screening mammograms; 4) For women ages 55 and over, we support both the transition from an annual to a biennial interval if this aligns more with patient's values and preferences, or continuation with annual screening; 5) All women should discuss with their providers when to stop screening mammograms. Instructor Military Science: Olga Transcribe Date/Time: Sep 30 2021 2:16P Dictated by: MYLES RAMIREZ MD This examination was interpreted and the report reviewed and electronically signed by: MYLES RAMIREZ MD on Sep 30 2021 2:55PM EST [facility] Radiology Study observation (narrative) [facility] MG Breast - left Diagnostic for implantOrdered By: Ccf Provider on 09-30-2021 [facility] ic ELOISE SCREENINGon 09-14-2021 [facility] ic Progress Noteson 01-28-2021 [employer] Authentication Interface Message Text PLASTIC SURGERY FOLLOW-UP NOTE SUBJECTIVE: Ms. Ferderick is status post breast reduction and abdominoplasty. Feeling well, overall pleased with her results. Concerned about fullness at the ends of her incisions Patient has small dog ear in the lateral chest wall of the breast bilaterally, patient also has a upper roll which goes all the way to the back In lower part patient's has fullness in the flank which goes all the way to the midline Different options discussed, will send quote for 2 options - dog ear excision of the lateral chest wall in the office - upper back lift and lower back left in the OR total of 3 hours estimated time Surgery, incision and postoperative course discussed with patient in details, complications including but not limited to infection, bleeding, neurovascular damage, asymmetry, need for revision discussed with patient, patient seemed to understand and wanted to proceed with surgery. Paz Asif MD Normal [employer] Progress Noteson 06-01-2020 [employer] Authentication Interface Message Text PLASTIC SURGERY FOLLOW-UP NOTE SUBJECTIVE: Ms. Frederick is status post breast reduction and abdominoplasty. Feeling well, overall pleased with her results. Concerned about fullness at the ends of her incisions OBJECTIVE: On physical exam, Ms. Frederick has the following findings; Incisions well healed Dog ears right abdomen and bilateral lateral chest Good breast symmetry ASSESSMENT: Dog ears PLAN: 1. Discussed possible revision Will see Dr. Asif for surgical planning Bill Munoz APRN-CARLOS ENRIQUE Normal [employer] Progress Noteson 05-12-2020 [employer] Authentication Interface Message Text Patient was identified by name and date of . Pita Dove Patient at risk for falls:No Falls Risk protocol implemented: No Normal [employer] Vital Signs Date Time Vital Sign Value Performing Clinician Isa hess 11-29-2023 10:34-0400 Body height 153.5 cm Kimmie Hale APRN.CNP Work Phone: [facility] 11-29-2023 10:34-0400 Body mass index (BMI) [Ratio] 31.15 kg/m2 Kimmie Hale APRN.CNP Work Phone: [facility] 11-29-2023 10:34-0400 Body weight 73.4 kg Kimmie Hale APRN.CNP Work Phone: [facility] 11-29-2023 10:34-0400 Diastolic blood pressure 72 mm[Hg] Kimmie Hale APRN.CNP Work Phone: [facility] 11-29-2023 10:34-0400 Heart rate 83 /min Kimmie Hale APRN.CNP Work Phone: [facility] 11-29-2023 10:34-0400 Respiratory rate 16 /min Kimmie Tannhof SENIOR [employer] NET DEVELOPER.PATCH SANDER Work Phone: [facility] 11-29-2023 10:34-0400 SaO2% (BldA) [Mass fraction] 98 % Kimmie Tannhof [employer]ENIOR [employer] NET DEVELOPER.PATCH SANDER Work Phone: [facility] 11-29-2023 10:34-0400 Systolic blood pressure 104 mm[Hg] Kimmie Tannhof SENIOR [employer] NET DEVELOPER.PATCH SANDER Work Phone: [facility] 10-05-2022 15:27-0400 Body weight 85.28 kg Kimmie Tannhof SENIOR [employer] NET DEVELOPER.PATCH SANDER Work Phone: [facility] 10-05-2022 15:27-0400 Diastolic blood pressure 78 mm[Hg] Kimmie Tannhof SENIOR [employer] NET DEVELOPER.PATCH SANDER Work Phone: [facility] 10-05-2022 15:27-0400 Heart rate 73 /min Kimmie Tannhof SENIOR [employer] NET DEVELOPER.PATCH SANDER Work Phone: [facility] 10-05-2022 15:27-0400 Respiratory rate 16 /min Kimmie Tannhof SENIOR [employer] NET DEVELOPER.PATCH SANDER Work Phone: [facility] 10-05-2022 15:27-0400 SaO2% (BldA) [Mass fraction] 97 % Kimmie Tannhof SENIOR [employer] NET DEVELOPER.PATCH SANDER Work Phone: [facility] 10-05-2022 15:27-0400 Systolic blood pressure 112 mm[Hg] Kimmie Tannhof SENIOR [employer] NET DEVELOPER.PATCH SANDER Work Phone: [facility] 06-17-2021 07:05-0400 Body weight 78.02 kg Kimmie Tannhof SENIOR [employer] NET DEVELOPER.PATCH SANDER Work Phone: [facility] 06-17-2021 07:05-0400 Diastolic blood pressure 80 mm[Hg] Kimmie Tannhof SENIOR [employer] NET DEVELOPER.PATCH SANDER Work Phone: [facility] 06-17-2021 07:05-0400 Heart rate 70 /min Kimmie Tannhof SENIOR [employer] NET DEVELOPER.PATCH SANDER Work Phone: [facility] 06-17-2021 07:05-0400 Respiratory rate 18 /min Kimmie Hale APRN.CNP Work Phone: [facility] 06-17-2021 07:05-0400 Systolic blood pressure 110 mm[Hg] Kimmie Hale APRN.CNP Work Phone: [facility] Encounters Encounter Date Encounter Type Care Provider Facility Start: 11-29-2023 End: 11-29-2023 ambulatory KIMMIE HALE Facility:[facility] Start: 11-29-2023 Encounter for genera l adult medical examination without abnormal findings KIMMIESARANYA HALE [facility] Start: 11-29-2023 End: 11-29-2023 Patient encounter procedure Kimmie Hale APRN.CNP Work Phone: Family [facility] [place] Comment on above: Wellness examination (Primary Dx); Enlarged uterus; Night sweats; Essential hypertension; Anxiety with depression; Hot flashes; Class 1 obesity with body mass index (BMI) of 31.0 to 31.9 in adult, unspecified obesity type, unspecified whether serious comorbidity present; Nodule of skin of foot; Screening for depression; Encounter for screening examination for other mental health and behavioral disorders Start: 11-29-2023 End: 11-29-2023 Patient encounter status Kimmie Hale APRN.CNP Work Phone: [facility] Work Phone: Start: 11-27-2023 End: 11-28-2023 Refill Kimmie Hale APRN.CNP Work Phone: Family [facility] [place] Comment on above: Refill Request Start: 08-16-2023 ambulatory Daniel pederson MD Work Phone: Internal Medicine [facility] [place] Start: 03-25-2023 Refill Kimmie Hale APRN.CNP Work Phone: Family [facility] [place] Comment on above: Refill Request missing script Start: 02-05-2023 Letter encounter Bill GASCAPATCH SANDER Work Phone: [facility] Start: 12-29-2022 End: 12-29-2022 ambulatory JOHANNA CRONIN Facility:[facility] Start: 12-29-2022 End: 12-29-2022 Subsequent hospital visit by physician [facility] [employer] [address] Radiology Comment on above: Ganglion cyst of caitlin t [M67.479] Start: 12-27-2022 End: 12-27-2022 ambulatory Anjali Bravo SENIOR [employer] NET DEVELOPER.PATCH SANDER Work Phone: Telemedicine Comment on above: NO SHOW (Primary Dx) Acute cystitis witho ut hematuria (Primary Dx) Start: 12-27-2022 End: 12-27-2022 Telemedicine consultation with patient Anjali Bravo SENIOR DOT NET DEVELOPER.PATCH SANDER Work Phone: [facility] Start: 11-24-2022 Telephone encounter Yaya Marques Radiology Comment on above: Appointment Start: 11-23-2022 End: 11-23-2022 Patient encounter procedure Johanna Cronin Work Phone: Podiatry Comment on above: Ganglion cyst of caitlin t (Primary Dx) Start: 10-12-2022 Telephone encounter Kimmie blair SENIOR [employer] NET DEVELOPER.PATCH SANDER Work Phone: [facility] [place] Comment on above: Results (Labs ) Start: 10-06-2022 ambulatory Johanna marroquin Work Phone: Podiatry Comment on above: mri Start: 10-06-2022 E-mail encounter fro m caregiver Johanna Cronin Work Phone: [place] [facility] Start: 10-05-2022 End: 10-05-2022 Patient encounter procedure Kimmie Hale SENIOR [employer] NET DEVELOPER.PATCH SANDER Work Phone: [facility] [place] Comment on above: Anxiety with depress ion (Primary Dx); Hot flashes; Vaginal dryness Start: 09-02-2022 End: 09-02-2022 Patient encounter procedure Johanna Cronin Work Phone: Podiatry Comment on above: Ganglion cyst of caitlin t (Primary Dx) Start: 02-22-2022 Telephone encounter Daniel valencia MD Work Phone: [facility] Comment on above: New Patient Start: 02-08-2022 Letter encounter Bill Tammy VELIZ-PATCH SANDER Work Phone: [facility] Start: 09-30-2021 End: 09-30-2021 Subsequent hospital visit by physician Diagnostic Mammo [facility] Comment on above: Abnormal mammogram [ R92.8] Start: 09-14-2021 End: 09-14-2021 Subsequent hospital visit by physician Screen Mammo [facility] Comment on above: Encounter for screen ing mammogram for breast cancer [Z12.31] Start: 08-18-2021 ambulatory Daniel pederson MD Work Phone: Internal [facility] [place] Start: 06-17-2021 End: 06-17-2021 Patient encounter procedure Kimmie Hale APRN.CNP Work Phone: Family Medicine [place] Comment on above: Obesity, Class II, B SC 35-39.9 (Primary Dx) Start: 05-10-2021 Letter encounter Bill Tammy VELIZ-PATCH SANDER Work Phone: [facility] Start: 01-28-2021 ambulatory UNKNOWN PROVIDER Facili ty:[facility] Start: 05-12-2020 ambulatory UNKNOWN PROVIDER Facili ty:[facility] Procedures Date Procedure Procedure Detail Performing Clinician Start: 11-29-2023 Adult depression scr eening assessment Kimmie Hale APRN.CNP Work Phone: Start: 12-29-2022 Aspiration&/injectio n ganglion cyst any locatj Johanna Cronin Work Phone: Start: 10-08-2022 Lipid 1996 panel - S pedro or Plasma Johanna Cronin Work Phone: Start: 09-30-2021 Diagnostic mammograp hy computer-aided detcj kaylah Cartwright APRN.PATCH SANDER Work Phone: Start: 09-14-2021 End: 09-14-2021 Screening mammography bi 2-view breast inc cad Bulk Order Provider Start: 04-14-2021 Adult depression scr eening assessment Kimmie Hale APRN.CNP Work Phone: Start: 06-20-2019 Mammography Kimmie Fitch nhof SENIOR [employer] NET DEVELOPER.PATCH SANDER Work Phone: Plan of Treatment Date Care Activity Detail Author Start: 11-06-2028 Screening for malign ant neoplasm of cervix Cervical Cancer Screening [facility] Start: 10-09-2027 Lipid 1996 panel - Serum or Plasma Lipid Screening [facility] Start: 10-09-2027 Lipid panel Lipid Screening [facility] Start: 10-09-2027 LIPID SCREEN LIPID SCREEN [facility] Start: 01-20-2027 HPV TESTING HPV TESTING [facility] Start: 01-20-2027 PAP TESTING PAP TESTING [facility] Start: 01-20-2027 Screening for malign ant neoplasm of cervix [facility] Start: 05-08-2026 LIPID SCREEN LIPID SCREEN [facility] Start: 10-08-2025 DIABETES SCREEN DIABETES SCREEN [facility] Start: 10-08-2025 Diabetes Screening Diabetes Screenin g [facility] Start: 09-20-2025 COLOGUARD (FIT-DNA) COLOGUARD (FIT-D NA) [facility] Start: 09-20-2025 COLORECTAL CANCER SCREENING COLORECTAL CANCER SCREENING [facility] Start: 09-20-2025 Screening for malign ant neoplasm of colon [facility] Start: 11-28-2024 Annual PCP Team [employer] Mechanic robyn Disease Visit Annual PCP Team Chronic Disease Visit [facility] Start: 11-28-2024 Anxiety Screening Anxiety Screening [facility] Start: 11-28-2024 BP Controlled (<130/80) BP Controlle d (<130/80) [facility] Start: 11-28-2024 Depression Screening Depression Scre ening [facility] Start: 11-28-2024 Hepatitis B Vaccine (1 of 3 - 19+ 3-dose series) Hepatitis B Vaccine (1 of 3 - 19+ 3-dose series) [facility] Comment on above: Postponed from 02/02 (Declined at this time) Start: 11-28-2024 Hepatitis C screening Hepatitis C Sc sara [facility] Comment on above: Postponed from 02/02 (Declined at this time) Start: 11-28-2024 HIV screening HIV Screening [facility] Comment on above: Postponed from 02/02 (Declined at this time) Start: 11-28-2024 Shingrix Vaccine (1 of 2) Shingrix Vaccine (1 of 2) [facility] Comment on above: Postponed from 02/02 (Declined at this time) Start: 11-28-2024 End: 11-28-2024 Patient encounter procedure 11/28/2024 10:40 AM EDT Office Visit Family Medicine [place] [address] [place] [address] Kimmie Hale APRN.PATCH SANDER [address] [place] [address] physical [facility] Comment on above: physical Start: 05-08-2024 DIABETES SCREEN DIABETES SCREEN [facility] Start: 12-17-2023 [facility] Start: 12-17-2023 Urine microalbumin profile [facility] Start: 12-14-2023 End: 12-14-2023 Patient encounter procedure 12/14/2023 8:30 AM EDT Office Visit Podiatry [address] [place] [address] Johanna Cronin [address] [place] [address] Nodule of skin of foot [R22.40] Podiatry Comment on above: Nodule of skin of fo ot [R22.40] Start: 11-29-2023 End: 02-28-2024 CBC W Auto Differential panel - Blood COMPLETE BLOOD COUNT AND DIFFERENTIAL Lab Routine Night sweats Expected: 11/29/2023, Expires: 02/28/2024 [facility] Comment on above: Expected: 11/29/2023 , Expires: 02/28/2024 Start: 11-29-2023 End: 02-28-2024 Comprehensive metabolic 2000 panel - Serum or Plasma COMPREHENSIVE METABOLIC PANEL Lab Routine Wellness examination Expected: 11/29/2023, Expires: 02/28/2024 [facility] Work Phone: Comment on above: Expected: 11/29/2023 , Expires: 02/28/2024 Start: 11-29-2023 End: 10-09-2024 Patient encounter procedure 11/29/2023 10:40 AM EDT Office Visit [facility] Medicine [place] [address] [place] [address] Kimmie Hale APRN.PATCH SANDER [address] [place] [address] physical Family Medicine [place] Comment on above: physical Start: 10-22-2023 Covid-19 Vaccine () Covid-19 Vaccine () [facility] Start: 10-22-2023 Covid-19 Vaccine () Covid-19 Vaccine () [facility] Start: 10-22-2023 Influenza vaccination Influenza Vacc ine (#1) [facility] Start: 10-06-2023 ANNUAL PCP TEAM FREIGHT MANAGER ROBYN DISEASE VISIT ANNUAL PCP TEAM CHRONIC DISEASE VISIT [facility] Start: 10-06-2023 BP CONTROLLED (<130/80) BP CONTROLLE D (<130/80) [facility] Start: 09-01-2023 ANNUAL PCP TEAM FREIGHT MANAGER ROBYN DISEASE VISIT ANNUAL PCP TEAM CHRONIC DISEASE VISIT [facility] Start: 09-01-2023 BP CONTROLLED (<130/80) BP CONTROLLE D (<130/80) [facility] Start: 09-01-2023 COVID-19 VACCINE (4 - Pfizer series) COVID-19 VACCINE (4 - Pfizer series) [facility] Comment on above: Postponed from 02/13 (Declined at this time) Start: 09-01-2023 HEPATITIS B (1 of 3 - 3-dose series) HEPATITIS B (1 of 3 - 3-dose series) [facility] Comment on above: Postponed from 02/02 (Declined at this time) Start: 09-01-2023 Hepatitis B Vaccine (1 of 3 - 19+ 3-dose series) Hepatitis B Vaccine (1 of 3 - 19+ 3-dose series) [facility] Comment on above: Postponed from 02/02 (Declined at this time) Start: 09-01-2023 Hepatitis B Vaccine (1 of 3 - 3-dose series) Hepatitis B Vaccine (1 of 3 - 3-dose series) [facility] Comment on above: Postponed from 02/02 (Declined at this time) Start: 09-01-2023 HEPATITIS C SCREENING HEPATITIS C [facility] Comment on above: Postponed from 02/02 (Declined at this time) Start: 09-01-2023 Hepatitis C screening Hepatitis C [facility] Comment on above: Postponed from 02/02 (Declined at this time) Start: 09-01-2023 HIV SCREENING HIV SCREENING [facility] Comment on above: Postponed from 02/02 (Declined at this time) Start: 09-01-2023 HIV screening HIV Screening [facility] Comment on above: Postponed from 02/02 (Declined at this time) Start: 02-20-2023 Behavioral Health Screening Behavioral Health Screening [facility] Start: 02-20-2023 Depression Assessment Depression Ass essment [facility] Start: 2023 Shingles (RZV) Vacci ne (1 of 2) Shingles (RZV) Vaccine (1 of 2) [facility] Start: 2023 Shingrix Vaccine (1 of 2) Shingrix Vaccine (1 of 2) [facility] Start: 10-21-2022 Covid-19 Vaccine ( season) Covid-19 Vaccine () [facility] Start: 10-21-2022 Influenza vaccination [facility] Start: 10-05-2022 End: 12-05-2022 CBC W Auto Differential panel - Blood CBC + DIFF Lab Routine Hot flashes Expected: 10/05/2022, Expires: 12/05/2022 [facility] Work Phone: Comment on above: Expected: 10/05/2022 , Expires: 12/05/2022 Start: 10-05-2022 End: 12-05-2022 Thyrotropin [Units/volume] in Serum or Plasma TSH BLD Lab Routine Hot flashes Expected: 10/05/2022, Expires: 12/05/2022 [facility] Work Phone: Comment on above: Expected: 10/05/2022 , Expires: 12/05/2022 Start: 09-14-2022 Mammography [facility] Start: 09-14-2022 Screening for malign ant neoplasm of breast Mammogram Screening [facility] Start: 06-17-2022 ANNUAL PCP TEAM FREIGHT MANAGER ROBYN DISEASE VISIT ANNUAL PCP TEAM CHRONIC DISEASE VISIT [facility] Start: 04-14-2022 Adult depression screening assessment DEPRESSION SCREENING [facility] Start: 04-14-2022 HEPATITIS C SCREENING HEPATITIS C SC SARA [facility] Comment on above: Postponed from 02/02 (Declined at this time) Start: 04-14-2022 HIV SCREENING HIV SCREENING [facility] Comment on above: Postponed from 02/02 (Declined at this time) Start: 02-20-2022 DEPRESSION ASSESSMENT DEPRESSION ASS ESSMENT [facility] Start: 11-20-2021 Influenza vaccination Influenza Vacc ine (#1) [facility] Start: 10-21-2021 Influenza vaccination INFLUENZA (#1) [facility] Start: 02-13-2021 COVID-19 Vaccine (4 - Booster for Pfizer series) COVID-19 Vaccine (4 - Booster for Pfizer series) [facility] Start: 01-02-2021 Basic metabolic 2000 panel - Serum or Plasma Basic Metabolic Panel [facility] Start: 01-02-2021 Creatinine measurement Basic Metabol ic Panel [facility] Start: 07-08-2020 Screening for malign ant neoplasm of breast [facility] Start: 06-19-2020 Mammography MAMMOGRAM [facility] Start: 03-07-2019 HPV TESTING HPV TESTING [facility] Start: 03-07-2019 PAP TESTING PAP TESTING [facility] Start: 2018 Cholesterol [Mass/volume] in Serum or Plasma Cholesterol [facility] Start: 2018 COLOGUARD (FIT-DNA) COLOGUARD (FIT-D NA) [facility] Start: 2018 Colonoscopy COLONOSCOPY [facility] Start: 2018 COLORECTAL CANCER SCREENING COLORECTAL CANCER SCREENING [facility] Start: [address] COLONOGRAPHY [facility] Start: 2018 FECAL OCCULT BLOOD FECAL OCCULT BLOO D [facility] Start: 2018 Screening for malign ant neoplasm of colon [facility] Start: 2018 SIGMOIDOSCOPY SIGMOIDOSCOPY [facility] Start: 1994 Screening for malign ant neoplasm of cervix Pap Smear [facility] Start: 02-03-1992 Hepatitis B Vaccine (1 of 3 - 19+ 3-dose series) Hepatitis B Vaccine (1 of 3 - 19+ 3-dose series) [facility] Start: 1991 Anxiety Screening Anxiety Screening [facility] Start: 1991 BP CONTROLLED (<130/80) BP CONTROLLE D (<130/80) [facility] Start: 1991 Depression Screening Depression Scre ening [facility] Start: 1991 [facility] HIV screening HIV Screening [facility] Start: 02-03-1988 HIV screening HIV Test [facility] Start: 1975 HEPATITIS B (1 of 3 - 3-dose series) HEPATITIS B (1 of 3 - 3-dose series) [facility] Start: 1975 Screening for malign ant neoplasm of colon Colonoscopy [facility] End: 09-14-2024 DBT Breast - bilateral screening ELOISE SCREENING W [facility] Radiology Routine Encounter for screening mammogram for breast cancer 1 Occurrences starting 08/16/2023 until 09/14/2024 [facility] Work Phone: Comment on above: 1 Occurrences starti ng 08/16/2023 until 09/14/2024 End: 10-02-2023 MRI ANKLE WO/W IVCON RIGHT MRI ANKLE WO/W IVCON RIGHT Radiology Routine Ganglion cyst of foot 1 Occurrences starting 09/02/2022 until 10/02/2023 [facility] Work Phone: Comment on above: 1 Occurrences starti ng 09/02/2022 until 10/02/2023 End: 09-17-2022 Screening mammography bi 2-view breast inc cad ELOISE SCREENING Radiology Routine Encounter for screening mammogram for breast cancer 1 Occurrences starting 08/18/2021 until 09/17/2022 [facility] Work Phone: Comment on above: 1 Occurrences starti ng 08/18/2021 until 09/17/2022 End: 12-23-2023 US ASP/INJ GANGLION RIGHT US ASP/INJ GANGLION RIGHT Radiology Routine Ganglion cyst of foot 1 Occurrences starting 11/23/2022 until 12/23/2023 [facility] Work Phone: Comment on above: 1 Occurrences starti ng 11/23/2022 until 12/23/2023 [facility] Immunizations Immunization Date Immunization Notes Care Provider Uriel chanfanny 12-19-2020 Seasonal, quadrivale nt, recombinant, injectable influenza vaccine, preservative free Bill Cooperup [employer] [facility] Work Phone: [facility] 12-19-2020 influenza virus vacc ine, unspecified formulation Bill Tammy [employer] [facility] Work Phone: [facility] 01-13-2015 influenza, injectabl e, quadrivalent, contains preservative Bill Tammy [employer] DEVELOPER-[facility] Work Phone: [facility] 12-16-2013 influenza, seasonal, injectable Billalexis Munoz [employer] DEVELOPER-[facility] Work Phone: [facility] 12-16-2013 measles, mumps and r ubella virus vaccine Bill Tammy [employer] [facility] Work Phone: [facility] 12-16-2013 tetanus toxoid, redu tmaiko diphtheria toxoid, and acellular pertussis vaccine, adsorbed Bill Tammy [employer] [facility] Work Phone: [facility] Payers Date Payer Category Payer Private Health Insurance [id number] 2018 Private Health Insurance [facility] CHOICE PLUS [id number] 2018-Present [phone] [address] [place] [address] [facility] [id number] 2018 Unknown [id number] Social History Date Type Detail Facility Start: 12-27-2010 End: 05-02-2019 Tobacco smoking status NHIS Never smoked tobacco [facility] Work Phone: Start: 12-27-2010 End: 05-02-2019 Tobacco use and exposure Smokeless tobacco non-user [facility] Start: 05-31-2020 End: 11-29-2023 Alcohol intake Current drinker of alcohol (finding) [facility] Start: 01-03-2020 History SDOH Alcohol Frequency 4 [facility] Start: 1975 Sex Assigned At Female [facility] Start: 08-27-2010 History SDOH Alcohol Comment Socially [facility] Start: 09-02-2022 End: 11-29-2023 History of Social function [facility] Work Phone: Start: 09-02-2022 End: 11-29-2023 Tobacco use panel [facility] Work Phone: Adult Depression Screening Assessment 0 [facility] Work Phone: Start: 11-12-2018 Gender identity Identifies as female gender (finding) [facility] Start: 11-12-2018 Sexual orientation Heterosexual (finding) [facility] Start: 09-20-2021 End: 09-30-2021 Exposure to SARS-CoV-2 (event) Not sure [facility] Medical Equipment Procedure Code Equipment Code Equipment Origin al Text Equipment Identifier Dates Dev Cncptv Essur e Perm - [id number] Start: 02-03-2011 Dev Cnc[employer] Essur e Perm - [id number] Start: 02-03-2011 Clinical Notes 06-17-2021 to 11-29-2023 Patient InstructionsKimmie Hale APRN.[facility] - 11/29/2023 10:40 AM EDTTelephone Encounter - Hardy Cartwright APRN.[facility] - 11/28/2023 8:36 AM EDTPatient InstructionsPatient InstructionsPatient Instructions Note Date & Type Note Facility 11-29-2023 Instructions Kimmie Hale APRN.[facility] - 11/29/2023 10:59 AM EDT Get labs completed, may wait to see if ENROLLMENT MANAGER needs additional labs (CMP and CBC) Continue to take all medication as prescribed. Keep scheduled appointments with ENROLLMENT MANAGER Increase Paxil 50 mg daily to see if any improvement with hot flashes Due for Mammogram Due for Dtap booster at the end of the month Follow up in 1 year or sooner as needed. Health Promotion: - Eat healthy -- go to Catch.com.gov to get started - Have a yearly physical - Mammogram yearly after age 40 - Get at least 30 minutes of physical activity daily - Get at least 7 to 8 hours of sleep each night - Reach and maintain a healthy weight - Get help to quit or don't start smoking - Limit alcohol use to one drink or less - Do not use illegal drugs or misuse prescription drugs - Wear a helmet when riding a bike and wear protective gear for sports - Wear a seatbelt in cars and not text and drive - Wear sunscreen documented in this encounter [facility] 11-29-2023 History of Presen t illness Narrative This is a 48 year old female who presents today with: Patient presents with: Physical HISTORY OF PRESENT ILLNESS: Roxane Frederick is a 48 year old female. Patient presents with: Physical Wellness Exam Diet: Eating a well balanced diet. Exercise: [place] Vision: Had Lasik surgery. Dental: Due for dental. Sleep:8 hours per night. Mood: See below. Following with Daniels weight loss. Taking tirzepatide. Doing well with medication. Watching diet. HTN: Taking lisinopril 10 mg daily and triamterene/HCTZ 37.5/25 mg daily . Not currently checking blood pressure at home. Denies chest pain, palpitations, dizziness, or edema. Depression/SHASHI: Taking Paxil 40 mg daily. Hydroxyzine 25 mg prn. Denies any increased sadness or SI/HI. Had pap last week with ENROLLMENT MANAGER at [facility], had transvaginal US completed, was told she had enlarged uterus. Will be having biopsy next week. Night sweats started last week. At night, waking up soaking wet with sweat. Some lower abdominal fullness. TSH WNL. Right foot cyst, following with podiatry, attempted to aspirate without success. Cyst has moved. Causing pain. Has follow up soon. Mammogram: Due this year Colonoscopy:Cologuard September 2022 Negative due in 2025 Pap: Last Pap January. [facility] ENROLLMENT MANAGER. PAST MEDICAL HISTORY: PAST MEDICAL HISTORY Diagnosis Date Hypertension Macromastia Needs 3D tulio for screening, causing neck, back problems, headaches, shoulder pain PAST SURGICAL HISTORY Procedure Laterality Date ANKLE SURGERY HX 06/20/2012 pins put in HYSTEROSCOPY BI TUBE OCCLUSION W/PERM IMPLNTS LAPAROSCOPY DIAGNOSTIC removal of tubes bilaterally. dilation of cervix to relieve hematometria PAST SURGICAL HISTORY OF N/A 01/10/2020 Tummy Tuck REDUCTION OF LARGE BREAST Bilateral 01/10/2020 S THERMACHOICE UTERINE BALLOON TONSILLECTOMY & ADENOIDECTOMY AGE 10/> ALLERGIES Stadol [Butorphanol] MEDICATIONS Current Outpatient Medications Medication Sig triamterene-hydroCHLOROthiazide (DYAZIDE) 37.5-25 mg per capsule Take 1 capsule by mouth once daily. lisinopril (ZESTRIL) 10 mg tablet Take 1 tablet by mouth once daily. PARoxetine (PAXIL) 40 mg tablet Take 1 tablet by mouth once daily. ibuprofen (MOTRIN) 800 mg ORAL tablet Take 1 tablet by mouth three times daily as needed. FOR PAIN. TAKE WITH FOOD. No current facility-administered medications for this visit. FAMILY HISTORY Problem Relation Age of Onset None Mother Heart Father Congenital disorder Hypertension Father Social History Tobacco Use Smoking status: Never Smokeless tobacco: Never Substance Use Topics Alcohol use: Yes Comment: Socially Drug use: No REVIEW OF SYSTEMS GENERAL: Night sweats/hot flashes HEENT: Negative for frequent or significant headaches, No changes in hearing or vision. NECK: Negative for lumps, goiter, pain and significant neck swelling RESPIRATORY: Negative for cough, hemoptysis, wheezing, dyspnea or shortness of breath CARDIOVASCULAR: Negative for chest pain, leg swelling, orthopnea, or palpitations GI: No nausea, vomiting, or diarrhea/constipation. No hematochezia/melena. No heartburn or reflux symptoms. : No history of dysuria, frequency or incontinence MUSCULOSKELETAL: Negative for joint pain or swelling. SKIN: Negative for lesions, rash, and itching ENDOCRINE: Negative for cold or heat intolerance, polyuria, polydipsia and goiter NEURO: No history of headaches, syncope, paralysis, seizures or tremors MOOD: Negative for depression, anxiety, or suicidal ideation. EXAM: BP 104/72 Pulse 83 Resp 16 Ht 153.5 cm (5' 0.43 ) Wt 73.4 kg (161 lb 13.1 oz) LMP 04/27/2013 SpO2 98% BMI 31.15 kg/m PHYSICAL EXAM: General Appearance: Well appearing, alert, in no acute distress, well-hydrated, well nourished. Skin: Skin color, texture, turgor normal, no suspicious rashes or lesions. Head: Normocephalic, no masses, lesions, tenderness or abnormalities. Eyes: Anicteric sclera. Pupils are equally round and reactive to light. Extraocular movements are intact. Ears: External ears normal, canals clear. TMs pearly tucker Neck: Supple, no adenopathy; thyroid symmetric, normal size, no bruits. Lungs: Lungs clear to auscultation. No wheezing, rhonchi, rales. Heart: RRR without murmur, gallop, or rubs. No ectopy. Abdomen: Abdomen soft, non-tender. Bowel sounds normal. No masses, organomegaly. Extremities: No deformities, edema, skin discoloration, clubbing or cyanosis. Good capillary refill. Musculoskeletal: No joint swelling, deformity, or tenderness. Peripheral Pulses: Normal, Capillary refill <2secs, strong peripheral pulses, Pulses palpable. Neurologic: Gait normal. Reflexes normal and symmetric. Sensation grossly intact. Mood: Pleasant, engaged, good eye contact. ASSESSMENT/PLAN: 1. Wellness examination - ICD9: V70.0, ICD10: Z00.00 (primary diagnosis) - Counseled on healthy diet and regular exercise - Discussed need and benefit for weight loss. BMI 31.15 kg/(m^2) - Follow up for annual exam in one year - COMPREHENSIVE METABOLIC PANEL 2. Enlarged uterus - ICD9: 621.2, ICD10: N85.2 - Keep upcoming appointment with gynecology. 3. Night sweats - ICD9: 780.8, ICD10: R61 - COMPLETE BLOOD COUNT AND DIFFERENTIAL - PAROXETINE 10 MG TABLET 4. Essential hypertension - ICD9: 401.9, ICD10: I10 - Controlled - Continue current medications - Recommend home blood pressure monitoring, to bring results to next visit - Encouraged sodium restriction, DASH or Mediterranean diet - Recommend regular aerobic exercise - TRIAMTERENE 37.5 MG-HYDROCHLOROTHIAZIDE 25 MG CAPSULE - LISINOPRIL 10 MG TABLET 5. Anxiety with depression - ICD9: 300.4, ICD10: F41.8 - May trial increase of Paxil 50 mg daily. This has worked well for her in the past for hot flashes. - PAROXETINE 10 MG TABLET 6. Hot flashes - ICD9: 782.62, ICD10: R23.2 - Same plan as #5. 7. Class 1 obesity with body mass index (BMI) of 31.0 to 31.9 in adult, unspecified obesity type, unspecified whether serious comorbidity present - ICD9: 278.00, V85.31, ICD10: E66.811, Z68.31 Weight decreasing - Continue current medications 8. Nodule of skin of foot - ICD9: 782.2, ICD10: R22.40 - Keep upcoming appointment with podiatry. 9. Screening for depression - ICD9: V79.0, ICD10: Z13.31 - DEPRESSION SCREENING 10. Encounter for screening examination for other mental health and behavioral disorders - ICD9: V79.8, ICD10: Z13.39 - ANXIETY SCREENING Follow-up in 1 year or sooner pending test results. Discussed treatment plan and patient voices understanding. Patient's questions answered appropriately. Medications and potential side effects were discussed and patient voices understanding. Kimmie Hale APRN.[facility] This note was partially generated using [employer] voice recognition system. Note was reviewed for accuracy. There may be minor misspellings or grammar miscues with [employer] voice recognition. documented in this encounter [facility] 11-29-2023 Note HNO ID: [id number] Author: KIMMIE HALE APRN.CNP Service: ? Author Type: Nurse Practitioner Type: Progress Notes Filed: 11/29/2023 12:54 Note Text: This is a 48 year old female who presents today with: Patient presents with: Physical HISTORY OF PRESENT ILLNESS: Roxane Frederick is a 48 year old female. Patient presents with: Physical Wellness Exam Diet: Eating a well balanced diet. Exercise: [place]aying active [place] the farm. Vision: Had Lasik surgery. Dental: Due for dental. Sleep:8 hours per night. Mood: See below. Following with Daniels weight loss. Taking tirzepatide. Doing well with medication. Watching diet. HTN: Taking lisinopril 10 mg daily and triamterene/HCTZ 37.5/25 mg daily . Not currently checking blood pressure at home. Denies chest pain, palpitations, dizziness, or edema. Depression/SHASHI: Taking Paxil 40 mg daily. Hydroxyzine 25 mg prn. Denies any increased sadness or SI/HI. Had pap last week with ENROLLMENT MANAGER at [facility] [employer] [place], had transvaginal US completed, was told she had enlarged uterus. Will be having biopsy next week. Night sweats started last week. At night, waking up soaking wet with sweat. Some lower abdominal fullness. TSH WNL. Right foot cyst, following with podiatry, attempted to aspirate without success. Cyst has moved. Causing pain. Has follow up soon. Mammogram: Due this year Colonoscopy:Cologuard September 2022 Negative due in 2025 Pap: Last Pap January. [employer] [employer] ENROLLMENT MANAGER. PAST MEDICAL HISTORY: PAST MEDICAL HISTORY Diagnosis Date Hypertension Macromastia Needs 3D tulio for screening, causing neck, back problems, headaches, shoulder pain PAST SURGICAL HISTORY Procedure Laterality Date ANKLE SURGERY HX 06/20/2012 pins put in HYSTEROSCOPY BI TUBE OCCLUSION W/PERM IMPLNTS LAPAROSCOPY DIAGNOSTIC removal of tubes bilaterally. dilation of cervix to relieve hematometria PAST SURGICAL HISTORY OF N/A 01/10/2020 Tummy Tuck REDUCTION OF LARGE BREAST Bilateral 01/10/2020 S THERMACHOICE UTERINE BALLOON TONSILLECTOMY AND ADENOIDECTOMY AGE 10/> ALLERGIES Stadol [Butorphanol] MEDICATIONS Current Outpatient Medications Medication Sig triamterene-hydroCHLOROthiazide (DYAZIDE) 37.5-25 mg per capsule Take 1 capsule by mouth once daily. lisinopril (ZESTRIL) 10 mg tablet Take 1 tablet by mouth once daily. PARoxetine (PAXIL) 40 mg tablet Take 1 tablet by mouth once daily. ibuprofen (MOTRIN) 800 mg ORAL tablet Take 1 tablet by mouth three times daily as needed. FOR PAIN. TAKE WITH FOOD. No current facility-administered medications for this visit. FAMILY HISTORY Problem Relation Age of Onset None Mother Heart Father Congenital disorder Hypertension Father Social History Tobacco Use Smoking status: Never Smokeless tobacco: Never Substance Use Topics Alcohol use: Yes Comment: Socially Drug use: No REVIEW OF SYSTEMS GENERAL: Night sweats/hot flashes HEENT: Negative for frequent or significant headaches, No changes in hearing or vision. NECK: Negative for lumps, goiter, pain and significant neck swelling RESPIRATORY: Negative for cough, hemoptysis, wheezing, dyspnea or shortness of breath CARDIOVASCULAR: Negative for chest pain, leg swelling, orthopnea, or palpitations GI: No nausea, vomiting, or diarrhea/constipation. No hematochezia/melena. No heartburn or reflux symptoms. : No history of dysuria, frequency or incontinence MUSCULOSKELETAL: Negative for joint pain or swelling. SKIN: Negative for lesions, rash, and itching ENDOCRINE: Negative for cold or heat intolerance, polyuria, polydipsia and goiter NEURO: No history of headaches, syncope, paralysis, seizures or tremors MOOD: Negative for depression, anxiety, or suicidal ideation. EXAM: BP 104/72 Pulse 83 Resp 16 Ht 153.5 cm (5' 0.43 ) Wt 73.4 kg (161 lb 13.1 oz) LMP 04/27/2013 SpO2 98% BMI 31.15 kg/m? PHYSICAL EXAM: General Appearance: Well appearing, alert, in no acute distress, well-hydrated, well nourished. Skin: Skin color, texture, turgor normal, no suspicious rashes or lesions. Head: Normocephalic, no masses, lesions, tenderness or abnormalities. Eyes: Anicteric sclera. Pupils are equally round and reactive to light. Extraocular movements are intact. Ears: External ears normal, canals clear. TMs pearly tucker Neck: Supple, no adenopathy; thyroid symmetric, normal size, no bruits. Lungs: Lungs clear to auscultation. No wheezing, rhonchi, rales. Heart: RRR without murmur, gallop, or rubs. No ectopy. Abdomen: Abdomen soft, non-tender. Bowel sounds normal. No masses, organomegaly. Extremities: No deformities, edema, skin discoloration, clubbing or cyanosis. Good capillary refill. Musculoskeletal: No joint swelling, deformity, or tenderness. Peripheral Pulses: Normal, Capillary refill <2secs, strong peripheral pulses, Pulses palpable. Neurologic: Gait normal. Reflexes normal and symmetric. Sensation grossly intact. Mood (more content not included)... [facility] 11-28-2023 Telephone encounter Note The following approved medication requests have been transmitted electronically. Requested Prescriptions Pending Prescriptions Disp Refills triamterene-hydroCHLOROthiazide (DYAZIDE) 37.5-25 mg per capsule 30 capsule 0 Sig: Take 1 capsule by mouth once daily. lisinopril (ZESTRIL) 10 mg tablet 30 tablet 0 Sig: Take 1 tablet by mouth once daily. Hardy Cartwright APRN.[facility] 11-28-2023 Miscellaneous Notes The following approved medication requests have been transmitted electronically. Requested Prescriptions Pending Prescriptions Disp Refills triamterene-hydroCHLOROthiazide (DYAZIDE) 37.5-25 mg per capsule 30 capsule 0 Sig: Take 1 capsule by mouth once daily. lisinopril (ZESTRIL) 10 mg tablet 30 tablet 0 Sig: Take 1 tablet by mouth once daily. Hardy Cartwright APRN.[facility] Patient scheduled 11/29/2023 Phone call to patient to schedule an appointment. Advised will need to be seen to continue refills. States she is driving and will need to call us back to schedule. Prescription Refill Information The patient has been identified by name and date of : Yes Caregiver verified no other encounters exist for this prescription request: Yes Caregiver confirmed with patient/requestor that no other refills are due, in the near future, with this provider at this time: Yes The last office visit in the department: 10/05/2022 Does the patient have a future office visit with this provider/department: No Requested Prescriptions Pending Prescriptions Disp Refills triamterene-hydroCHLOROthiazide (DYAZIDE) 37.5-25 mg per capsule 90 capsule 3 Sig: Take 1 capsule by mouth once daily. lisinopril (ZESTRIL) 10 mg tablet 90 tablet 3 Sig: Take 1 tablet by mouth once daily. Willow Jin LPN November 27, 2023 12:13 PM documented in this encounter [facility] 11-28-2023 Telephone encounter Note Patient scheduled 11/29/2023 [facility] 11-27-2023 Telephone encounter Note Phone call to patient to schedule an appointment. Advised will need to be seen to continue refills. States she is driving and will need to call us back to schedule. Prescription Refill Information The patient has been identified by name and date of : Yes Caregiver verified no other encounters exist for this prescription request: Yes Caregiver confirmed with patient/requestor that no other refills are due, in the near future, with this provider at this time: Yes The last office visit in the department: 10/05/2022 Does the patient have a future office visit with this provider/department: No Requested Prescriptions Pending Prescriptions Disp Refills triamterene-hydroCHLOROthiazide (DYAZIDE) 37.5-25 mg per capsule 90 capsule 3 Sig: Take 1 capsule by mouth once daily. lisinopril (ZESTRIL) 10 mg tablet 90 tablet 3 Sig: Take 1 tablet by mouth once daily. Willow Jin LPN November 27, 2023 12:13 PM [facility] 08-16-2023 Note Patient Outreach (IN [facility]) ROXANE FREDERICK ([id number]) 1975 F Date Time Provider Department 08/16/23 DANIEL BOWDEN During your visit today, we recorded the following information about you: Allergies As of Date: 08/16/2023 Noted Allergy Reaction STADOL (BUTORPHANOL) 08/27/2010 1 - Mental Status Change Date Reviewed: 12/27/2022 Reviewed by: Anjali Bravo APRN.CNP - Fully Assessed Visit Diagnosis:Encounter for screening mammogram for breast cancer [Z12.31] Order(s):ELOISE ANTUNEZ [[id number]] Order #: [id number] FUTURE Prescriptions as of 08/21/2023 - PARoxetine (PAXIL) 40 mg tablet Take 1 tablet by mouth once daily. - hydrOXYzine HCl (ATARAX) 25 mg tablet Take 1 tablet by mouth at bedtime as needed for anxiety. - triamterene-hydroCHLOROthiazide (DYAZIDE) 37.5-25 mg per capsule Take 1 capsule by mouth once daily. - lisinopril (ZESTRIL) 10 mg tablet Take 1 tablet by mouth once daily. - ibuprofen (MOTRIN) 800 mg ORAL tablet Take 1 tablet by mouth three times daily as needed. FOR PAIN. TAKE WITH FOOD. Problem List As Of Date 08/16/2023 Noted Resolved Hypertrophy of breast [N62] 12/23/2016 Essential hypertension [I10] 02/14/2017 Macromastia [N62] Encounter Status:Closed by [employer], [employer] on 08/21/23 [facility] 03-27-2023 Miscellaneous Notes The following approved medication requests have been transmitted electronically. Requested Prescriptions Signed Prescriptions Disp Refills hydrOXYzine HCl (ATARAX) 25 mg tablet 30 tablet 5 Sig: Take 1 tablet by mouth at bedtime as needed for anxiety. Kimmie Hale APRN.CARLOS ENRIQUE Patient has been identified by name and date of : Yes, Provider Kimmie Hale CNP Date March 27, 2023 Time 8:21 AM Patient mycharts for refill(s): Requested Prescriptions Pending Prescriptions Disp Refills hydrOXYzine HCl (ATARAX) 25 mg tablet 30 tablet 5 Sig: Take 1 tablet by mouth at bedtime as needed for anxiety. Date of last office visit in primary care: 10/05/2022 Date of next office visit in primary care: Visit date not found Last Rx: 08/31/22 #30 w/5. Please advise. Thank you. Mar Perkins Ma. documented in this encounter [facility] 03-27-2023 Miscellaneous Notes The following approved medication requests have been transmitted electronically. Requested Prescriptions Pending Prescriptions Disp Refills PARoxetine (PAXIL) 40 mg tablet 90 tablet 2 Sig: Take 1 tablet by mouth once daily. Hardy Cartwright APRN.CNP Patient has been identified by name and date of : Yes, Provider Daniel Bowden MD Date March 27, 2023 Time 8:53 AM Patient phones for refill(s): Requested Prescriptions Pending Prescriptions Disp Refills PARoxetine (PAXIL) 40 mg tablet 90 tablet 2 Sig: Take 1 tablet by mouth once daily. Date of last office visit in primary care: 10/05/2022 Date of next office visit in primary care: none Pt requesting 90 day supply Please advise. Thank you. Urvashi Wisdom Ma. documented in this encounter [facility] 12-27-2022 Instructions Anjali Bravo APRN.CNP - 12/27/2022 4:34 PM EST UTI: BLADDER INFECTION OVERVIEW Bladder infections are one of the most common infections, causing symptoms of burning with urination and needing to urinate frequently. A bladder infection is a type of urinary tract infection (UTI). Bladder infections are more common is women than men. Most women have an uncomplicated bladder infection that is easily treated with a short course of antibiotics. In men, bladder infections may also affect the prostate gland, and a longer course of treatment may be needed. BLADDER INFECTION CAUSES The urinary tract includes the kidneys (which filter urine), ureters (the tube that carries urine from the kidneys to the bladder), the bladder (which stores urine), and urethra (the tube that carries urine out of the bladder). Bacteria do not normally live in these areas. However, bacteria normally live close to the urethra in women and men who are not circumcised. Bladder infections occur when bacteria travel up the urethra into the bladder. Factors that increase the risk of developing a bladder infection include: Vaginal sex Use of spermicides History of past bladder infections Diabetes In men, not being circumcised or having anal sex increase the risk of bladder infections. BLADDER INFECTION SYMPTOMS The typical symptoms of a bladder infection include: Pain or burning when urinating Frequent need to urinate Urgent need to urinate Blood in the urine Fever, back pain, nausea, or vomiting are not common symptoms of a bladder infection, but can occur in people with a kidney infection (pyelonephritis). If you have these symptoms, you should call your doctor or nurse immediately. Is it a bladder infection or something else? -- Burning with urination can also occur in people with vaginitis (eg, yeast infection) or urethritis (inflammation of the urethra). For this reason, it is important to call your healthcare provider before assuming you have a bladder infection. BLADDER INFECTION DIAGNOSIS Simple bladder infections are usually diagnosed based upon your symptoms alone. However, most patients, especially those who have bladder infection symptoms for the first time, should see a healthcare provider for urine testing. Urine culture -- A urine culture is a test that uses a sample of urine to try and grow bacteria in a laboratory. It usually requires about 48 hours to get results. However, a urine culture is not always required to diagnose a bladder infection. Urine culture is often recommended if: You have never had a bladder infection before You have symptoms that are not typical for bladder infection You have had resistant bladder infections before You have frequent bladder infections You do not begin to feel better within 24 to 48 hours after starting antibiotics You are BLADDER INFECTION TREATMENT Bladder infection -- In young, healthy adolescents and adults with a bladder infection, the usual treatment includes a three to seven day course of antibiotics. The typical drugs chosen are: trimethoprim-sulfamethoxazole (Bactrim ), nitrofurantoin (Macrobid ), ciprofloxacin (Cipro ) or levofloxacin (Levaquin ). In men, the infection may involve your prostate gland and treatment is usually given for at least 7 days. Your symptoms should begin to resolve within one day after starting treatment. It is important to take the full course of antibiotics to completely eliminate the infection. If your symptoms persist for more than two or three days after starting treatment, call your healthcare provider. If needed, you can take a prescription medication that numbs the bladder and urethra (phenazopyridine [Pyridium ]) to reduce the burning pain of some UTIs. A similar medication is available without a prescription (eg, Uristat). Both medications change the color of the urine (usually blue or orange) and can interfere with laboratory testing. You should not take these medications for more than 48 hours due to the risk of side effects. These medications do not treat the infection and must be taken along with an antibiotic. Some providers recommend drinking more fluids while treating bladder infections to help flush bacteria from the bladder. Others believe that drinking more fluids may dilute the antibiotic in the bladder and make the medication less effective. No studies have been performed to address this issue. There are also no good studies on the effectiveness of cranberry juice for treating a bladder infection; we do not recommend using cranberry juice to treat bladder infections. Follow-up care -- Follow-up testing is not needed in healthy, young men or women with a bladder infection if symptoms resolve. women are usually asked to have a repeat urine culture one to two weeks after treatment has ended to make sure the bacteria are no longer in the urine. RECURRENT BLADDER INFECTIONS Bladder infections versus other causes -- Some adults, especially women, develop bladder infections frequently. In this case, it is important to confirm that your symptoms (eg, pain or burning, frequency, and urgency) are caused by a bladder infection. Symptoms are usually similar from one infection to another. The best way to confirm an infection is to have a urine culture. If your urine culture is negative for infection, other causes of pain, burning, and frequency should be investigated. There is no reason to take antibiotics if your urine culture is negative. Need for further testing -- If you continue to develop bladder infections, you may require further testing. If you continue to notice blood in your urine after your bladder infection has cleared, you should have further testing. Preventing recurrent UTIs -- Women with recurrent urinary tract infections may be advised to take steps to prevent bladder infections, including one or more of the following: Changes in control -- Women who develop frequent bladder infections and use spermicides, particularly those who also use a diaphragm, may be encouraged to use an alternate method of control. Cranberry products -- Taking cranberry juice or cranberry tablets has been promoted as one way to help prevent frequent bladder infections. However, this has not been proven. Drinking more fluid and urinating after intercourse -- Although studies have not proven that drinking more fluids or urinating soon after intercourse can prevent infection, some healthcare providers recommend these measures since they are not harmful. Drinking more fluid may help to wash out bacteria that enter the bladder. Postmenopausal women -- Postmenopausal women who develop recurrent bladder infections may benefit from using vaginal estrogen. Vaginal estrogen is available in a flexible ring that is worn in the vagina for three months (eg, Estring ), a small tablet (Vagifem ), or a cream (eg, Premarin or Estrace ). Vaginal estrogen is discussed in more detail in a separate topic review. Antibiotics -- A preventive antibiotic treatment may be recommended if you repeatedly develop bladder infections and have not responded to other preventive measures. Antibiotics are highly effective in preventing recurrent bladder infections and can be taken in several different ways. Preventive antibiotic -- You can take a low dose of an antibiotic once per day or three times per week for six months to several years. Antibiotics following intercourse -- In women who develop urinary tract infections after sex, taking a single low dose antibiotic after intercourse can help to prevent bladder infections. Self-treatment -- A plan to begin antibiotics at the first sign of a bladder infection may be recommended in some situations. Before starting this regimen, it is important that you have had testing (urine cultures) to confirm that your symptoms are caused by a bladder infection; some people have symptoms of a bladder infection but do not actually have an infection. documented in this encounter [facility] 12-27-2022 Note HNO ID: [id number] Author: Anjali Bravo APRN.CNP Service: ? Author Type: Nurse Practitioner Type: Progress Notes Filed: 12/27/2022 4:34 PM Note Text: Telemedicine Visit - Distance Health Virtual Visit Note AUDIO ONLY Patient seen on [employer] Video Visit platform. Location of patient: [place] I have communicated my name and active licensure. The patient's identity and physical location were verified at the time of this visit. Either the patient or their legal sales representative consultant has been informed of the risks and benefits of -- and alternatives to -- treatment through a remote evaluation and consents to proceed with the evaluation remotely. History of Present Illness Roxane Frederick is a 47 year old old female with a history of UTI symptoms for 1 days. Urinary symptoms ROS: urinary frequency, urinary urgency, and burning with urination Denies: fever, chills, sweats, back pain, or new sexual partner Chance of : No Last intercourse: YES Any self-treatment attempted: Yes Number of previous UTI's in last 6 months:0 Number of previous UTI's in last 12 months: 0 Alleviating Factors include AZO with minimal relief in symptoms. PAST MEDICAL HISTORY Diagnosis Date Hypertension Macromastia Needs 3D tulio for screening, causing neck, back problems, headaches, shoulder pain PAST SURGICAL HISTORY Procedure Laterality Date ANKLE SURGERY HX 06/20/2012 pins put in HYSTEROSCOPY BI TUBE OCCLUSION W/PERM IMPLNTS LAPAROSCOPY DIAGNOSTIC removal of tubes bilaterally. dilation of cervix to relieve hematometria PAST SURGICAL HISTORY OF N/A 01/10/2020 Tummy Tuck REDUCTION OF LARGE BREAST Bilateral 01/10/2020 S THERMACHOICE UTERINE BALLOON TONSILLECTOMY AND ADENOIDECTOMY AGE 10/> FAMILY HISTORY Problem Relation Age of Onset None Mother Heart Father Congenital disorder Hypertension Father Social History Tobacco Use Smoking status: Never Smokeless tobacco: Never Substance Use Topics Alcohol use: Yes Comment: Socially Drug use: No ALLERGIES Allergen Reactions Stadol [Butorphanol] Mental Status Change Current Outpatient Medications Medication Sig triamterene-hydroCHLOROthiazide (DYAZIDE) 37.5-25 mg per capsule Take 1 capsule by mouth once daily. lisinopril (ZESTRIL) 10 mg tablet Take 1 tablet by mouth once daily. PARoxetine (PAXIL) 40 mg tablet Take 1 tablet by mouth once daily. ibuprofen (MOTRIN) 800 mg ORAL tablet Take 1 tablet by mouth three times daily as needed. FOR PAIN. TAKE WITH FOOD. No current facility-administered medications for this visit. Video Exam (Examination performed via Video enabled technology) General Appearance: 47 year old yo female in NAD; not ill or toxic appearing Abdomen: non-tender by self palpation CVA Tenderness: non-tender bilaterally by self palpation ASSESSMENT/PLAN: 1. Acute cystitis without hematuria - ICD9: 595.0, ICD10: N30.00 - NITROFURANTOIN MONOHYDRATE AND MACROCRYSTAL 100 MG ORAL CAP - Reviewed good bathroom hygiene; NO lotions, potions, bath bombs or bubble baths - Reviewed sxs that would warrant ED tx for possible kidney infection - Pt verbalized understanding - Red flags discussed for in person care and follow up - All questions answered Anjali Bravo APRN.CNP If you let us know who your primary care provider is, we will send them a notification of today?s visit through our electronic medical records system. Since not all providers have access to our notifications, we strongly encourage you to share the following record of today?s visit with your primary care provider at your next visit. This will help in providing you the best care. .During this patient visit I have spent approximately 12 minutes. [facility] 12-27-2022 History of Presen t illness Narrative Telemedicine Visit - Distance Health Virtual Visit Note AUDIO ONLY Patient seen on [employer] Video Visit platform. Location of patient: [place] I have communicated my name and active licensure. The patient's identity and physical location were verified at the time of this visit. Either the patient or their legal sales representative consultant has been informed of the risks and benefits of -- and alternatives to -- treatment through a remote evaluation and consents to proceed with the evaluation remotely. History of Present Illness Roxane Frederick is a 47 year old old female with a history of UTI symptoms for 1 days. Urinary symptoms ROS: urinary frequency, urinary urgency, and burning with urination Denies: fever, chills, sweats, back pain, or new sexual partner Chance of : No Last intercourse: YES Any self-treatment attempted: Yes Number of previous UTI's in last 6 months:0 Number of previous UTI's in last 12 months: 0 Alleviating Factors include AZO with minimal relief in symptoms. PAST MEDICAL HISTORY Diagnosis Date Hypertension Macromastia Needs 3D tulio for screening, causing neck, back problems, headaches, shoulder pain PAST SURGICAL HISTORY Procedure Laterality Date ANKLE SURGERY HX 06/20/2012 pins put in HYSTEROSCOPY BI TUBE OCCLUSION W/PERM IMPLNTS LAPAROSCOPY DIAGNOSTIC removal of tubes bilaterally. dilation of cervix to relieve hematometria PAST SURGICAL HISTORY OF N/A 01/10/2020 Tummy Tuck REDUCTION OF LARGE BREAST Bilateral 01/10/2020 S THERMACHOICE UTERINE BALLOON TONSILLECTOMY & ADENOIDECTOMY AGE 10/> FAMILY HISTORY Problem Relation Age of Onset None Mother Heart Father Congenital disorder Hypertension Father Social History Tobacco Use Smoking status: Never Smokeless tobacco: Never Substance Use Topics Alcohol use: Yes Comment: Socially Drug use: No ALLERGIES Allergen Reactions Stadol [Butorphanol] Mental Status Change Current Outpatient Medications Medication Sig triamterene-hydroCHLOROthiazide (DYAZIDE) 37.5-25 mg per capsule Take 1 capsule by mouth once daily. lisinopril (ZESTRIL) 10 mg tablet Take 1 tablet by mouth once daily. PARoxetine (PAXIL) 40 mg tablet Take 1 tablet by mouth once daily. ibuprofen (MOTRIN) 800 mg ORAL tablet Take 1 tablet by mouth three times daily as needed. FOR PAIN. TAKE WITH FOOD. No current facility-administered medications for this visit. Video Exam (Examination performed via Video enabled technology) General Appearance: 47 year old yo female in NAD; not ill or toxic appearing Abdomen: non-tender by self palpation CVA Tenderness: non-tender bilaterally by self palpation ASSESSMENT/PLAN: 1. Acute cystitis without hematuria - ICD9: 595.0, ICD10: N30.00 - NITROFURANTOIN MONOHYDRATE & MACROCRYSTAL 100 MG ORAL CAP - Reviewed good bathroom hygiene; NO lotions, potions, bath bombs or bubble baths - Reviewed sxs that would warrant ED tx for possible kidney infection - Pt verbalized understanding - Red flags discussed for in person care and follow up - All questions answered Anjali Bravo APRN.CNP If you let us know who your primary care provider is, we will send them a notification of today s visit through our electronic medical records system. Since not all providers have access to our notifications, we strongly encourage you to share the following record of today s visit with your primary care provider at your next visit. This will help in providing you the best care. .During this patient visit I have spent approximately 12 minutes. documented in this encounter [facility] 12-27-2022 Note HNO ID: [id number] Author: Anjali Bravo APRN.CNP Service: ? Author Type: Nurse Practitioner Type: Progress Notes Filed: 12/27/2022 4:07 PM Note Text: PT FAILED TO CONNECT Anjali Bravo APRN.CNP [facility] 12-27-2022 History of Presen t illness Narrative PT FAILED TO CONNECT Anjali Bravo APRN.CNP documented in this encounter [facility] 11-24-2022 Miscellaneous Notes Pt is scheduled for their [facility] US on 12/29 at [facility]. Visit Type: INJ ONLY 1 Visit Length: 60 MINUTES Order Name/Protocol: US ASP/INJ GANGLION RT; RT DORSOLATERAL FOREFOOT AT 5TH EXTENSOR TENDON GANGLION CYST ASP+INJ. REFER TO MR FINDINGS FROM 10/04/22 Preferred Provider: N/A Comment: N/A Location: [facility] OR [facility] Slot held: N/A documented in this encounter [facility] 11-23-2022 History of Presen t illness Narrative FOLLOW UP PODIATRIC OFFICE VISIT Chief Complaint: This 47 year old who presents for follow up:ganglion cyst of right foot Patient presents to clinic for follow-up ganglion cyst of right foot The cyst is to the right forefoot and has progressively gotten bigger over the past 2 years She states the cyst will fluctuate in size from day to day She states there is increasing pain depending on what shoe she wears She has mri to review PAIN EVALUATION 11/23/2022 1604 Pain Level: 4 Pain Location: Foot-Right Description: Dull;Aching Duration Amount of Time: 6 Duration Units: Months Frequency: Intermittent Intervention/Comfort measure: Reposition;Relaxation Hemoglobin A1C Date Value Ref Range Status 10/08/2022 4.8 4.3 - 5.6 % Final Comment: [place] [employer] guidelines indicate that patients with HgbA1c in the range 5.7-6.4% are at increased risk for development of diabetes, and intervention by lifestyle modification may be beneficial. HgbA1c greater or equal to 6.5% is considered diagnostic of diabetes. PCP: Daniel Bowden MD PAST MEDICAL HISTORY Diagnosis Date Hypertension Macromastia Needs 3D tulio for screening, causing neck, back problems, headaches, shoulder pain Current Outpatient Medications Medication Sig triamterene-hydroCHLOROthiazide (DYAZIDE) 37.5-25 mg per capsule Take 1 capsule by mouth once daily. lisinopril (ZESTRIL) 10 mg tablet Take 1 tablet by mouth once daily. PARoxetine (PAXIL) 40 mg tablet Take 1 tablet by mouth once daily. ibuprofen (MOTRIN) 800 mg ORAL tablet Take 1 tablet by mouth three times daily as needed. FOR PAIN. TAKE WITH FOOD. No current facility-administered medications for this visit. ALLERGIES Allergen Reactions Stadol [Butorphanol] Mental Status Change PAST SURGICAL HISTORY Procedure Laterality Date ANKLE SURGERY HX 06/20/2012 pins put in HYSTEROSCOPY BI TUBE OCCLUSION W/PERM IMPLNTS LAPAROSCOPY DIAGNOSTIC removal of tubes bilaterally. dilation of cervix to relieve hematometria PAST SURGICAL HISTORY OF N/A 01/10/2020 Tummy Tuck REDUCTION OF LARGE BREAST Bilateral 01/10/2020 S THERMACHOICE UTERINE BALLOON TONSILLECTOMY & ADENOIDECTOMY AGE 10/> Physical Exam: OBJECTIVE: Constitutional: Pt is a well developed 47 year old female who is alert, oriented, cooperative and in no apparent distress. Eyes: Following during examination. No redness or drainage. Respiratory: RR normal and nonlabored. Even breathing. No evidence of distress. Psychology: Patient is engaged during conversation. Normal affect and mood. Does not appear depressed or anxious. NVSI unchanged from previous visit. Dermatological: Nails 1-5 b/l are normal. Webspaces clean and dry 1-4 b/l. Skin appears well hydrated and supple. good color, texture, turgor. No open lesions present. No callosities present. Musculoskeletal/Orthopaedic: Patient has pain to palpation of right lateral forefoot Palpable ganglion present to right foot Mri reviewed. + ganglion present ASSESSMENT: (M67.479) Ganglion cyst of foot (primary encounter diagnosis) PLAN: Discussed ganglion of right foot Reviewed on mri Discussed aspiration via ultrasound vs surgical excision. Discussed risk of recurrence with aspiration. Discussed recovery time for surgery Patient is interested in trying aspiration first Order for aspiration made Johanna Cronin DPM AMB ROOMING INTAKE FLOWSHEET DATA Pain Pain Level: 4 Pain Location: Foot-Right Description: Dull, Aching Duration Amount of Time: 6 Duration Units: Months Frequency: Intermittent Intervention/Comfort measure: Reposition, Relaxation Patient presents with: Right Foot - Established Patient, Pain, Swelling Sury Malcolm LPN documented in this encounter [facility] 10-12-2022 Miscellaneous Notes Pt was notified of all results & message from provider. Pt voiced understanding & states understanding. Viviana Prasad LPN Can you please call the patient and let her know that I reviewed her lab results. A1c was 4.8, no signs of diabetes. Thyroid labs were normal. LDL cholesterol was elevated at 176, up from 147. I would recommend lifestyle changes at home to help improve this. Try to decrease any processed foods in the diet. Try to increase lean protein, vegetables, and get some form of exercise. At this time I do not see any causes for her hot flashes. This is more than likely hormone related. I would recommend that she continue on the Paxil and reach out to the office in 1 month. If no improvement I would recommend that she follow-up with gynecology. Please let me know if she has any questions. Thank you. Kimmie Hale APRN.CARLOS ENRIQUE documented in this encounter [facility] 10-05-2022 Instructions Kimmie Hale APRN.CARLOS ENRIQUE - 10/05/2022 3:42 PM EDT Get fasting labs completed, no food for 10-12 hours. May have black coffee and water. Order is good until 11/01/2022 Continue to take Paxil 40 mg daily. May use replenish as needed Follow up in 1 month or sooner pending test results. documented in this encounter [facility] 10-05-2022 History of Presen t illness Narrative This is a 47 year old female who presents today with: Patient presents with: Follow Up: med check HISTORY OF PRESENT ILLNESS: Roxane Frederick is a 47 year old female. Patient presents with: Follow Up: med check 1 month follow up. At last office visit stopped Zoloft and started Paxil 40 mg and hydroxyzine for anxiety and hot flashes. Mild improvement of switching to Paxil. Still having ongoing night sweats. No increased sadness, SI/or HI. Menses: Ended up having a menses in August after office visit and again this month. Has noticed some vaginal dryness. PAST MEDICAL HISTORY: PAST MEDICAL HISTORY Diagnosis Date Hypertension Macromastia Needs 3D tulio for screening, causing neck, back problems, headaches, shoulder pain PAST SURGICAL HISTORY Procedure Laterality Date ANKLE SURGERY HX 06/20/2012 pins put in HYSTEROSCOPY BI TUBE OCCLUSION W/PERM IMPLNTS LAPAROSCOPY DIAGNOSTIC removal of tubes bilaterally. dilation of cervix to relieve hematometria PAST SURGICAL HISTORY OF N/A 01/10/2020 Tummy Tuck REDUCTION OF LARGE BREAST Bilateral 01/10/2020 S THERMACHOICE UTERINE BALLOON TONSILLECTOMY & ADENOIDECTOMY AGE 10/> ALLERGIES Stadol [Butorphanol] MEDICATIONS Current Outpatient Medications Medication Sig triamterene-hydroCHLOROthiazide (DYAZIDE) 37.5-25 mg per capsule Take 1 capsule by mouth once daily. lisinopril (ZESTRIL) 10 mg tablet Take 1 tablet by mouth once daily. PARoxetine (PAXIL) 40 mg tablet Take 1 tablet by mouth once daily. ibuprofen (MOTRIN) 800 mg ORAL tablet Take 1 tablet by mouth three times daily as needed. FOR PAIN. TAKE WITH FOOD. No current facility-administered medications for this visit. FAMILY HISTORY Problem Relation Age of Onset None Mother Heart Father Congenital disorder Hypertension Father Social History Tobacco Use Smoking status: Never Smokeless tobacco: Never Substance Use Topics Alcohol use: Yes Comment: Socially Drug use: No REVIEW OF SYSTEMS GENERAL: + Hot flashes HEENT: Negative for frequent or significant headaches, No changes in hearing or vision. NECK: Negative for lumps, goiter, pain and significant neck swelling RESPIRATORY: Negative for cough, hemoptysis, wheezing, dyspnea or shortness of breath CARDIOVASCULAR: Negative for chest pain, leg swelling, orthopnea, or palpitations GI: No nausea, vomiting, or diarrhea/constipation. No hematochezia/melena. No heartburn or reflux symptoms. : No history of dysuria, frequency or incontinence MUSCULOSKELETAL: Negative for joint pain or swelling. SKIN: Negative for lesions, rash, and itching ENDOCRINE: Negative for cold or heat intolerance, polyuria, polydipsia and goiter NEURO: No history of headaches, syncope, paralysis, seizures or tremors MOOD: Negative for depression, anxiety, or suicidal ideation. EXAM: BP 112/78 Pulse 73 Resp 16 Wt 85.3 kg (188 lb) [facility] 04/27/2013 SpO2 97% BMI 36.72 kg/m PHYSICAL EXAM: General Appearance: Well appearing, alert, in no acute distress, well-hydrated, well nourished. Skin: Skin color, texture, turgor normal, no suspicious rashes or lesions. Head: Normocephalic, no masses, lesions, tenderness or abnormalities. Eyes: Anicteric sclera. Extraocular movements are intact. Lungs: Lungs clear to auscultation. No wheezing, rhonchi, rales. Heart: RRR without murmur, gallop, or rubs. No ectopy. Extremities: No deformities, edema, skin discoloration, clubbing or cyanosis. Good capillary refill. Peripheral Pulses: Normal, Capillary refill <2secs, strong peripheral pulses, Pulses palpable. Neurologic: Gait normal Sensation grossly intact. Mood: Pleasant, engaged, good eye contact. ASSESSMENT/PLAN: 1. Anxiety with depression - ICD9: 300.4, ICD10: F41.8 (primary diagnosis) - Continue with Paxil 40 mg daily. - Follow-up in 1 month. 2. Hot flashes - ICD9: 782.62, ICD10: R23.2 - Get labs completed. - Discussed follow up with ENROLLMENT MANAGER if labs are normal, may be due to hormonal changes. - CBC + DIFF - TSH BLD 3. Vaginal dryness - ICD9: 625.8, ICD10: N89.8 - May use replenish as needed. Follow-up in 1 month or sooner as needed. Discussed treatment plan and patient voices understanding. Patient's questions answered appropriately. Medications and potential side effects were discussed and patient voices understanding. Kimmie Hale APRN.PATCH SANDER This note was partially generated using Make Meaning voice recognition system. Note was reviewed for accuracy. There may be minor misspellings or grammar miscues with Make Meaning voice recognition. documented in this encounter [facility] 09-02-2022 History of Presen t illness Narrative Consultation requested by Dr. Hale for an opinion regarding cyst of right foot. My final recommendations will be communicated back to the requesting physician by way of shared Medical record or letter to requesting physician via US mail. Initial Podiatric Office Visit: Chief Complaint: This 47 year old female who presents with chief complaint:skin nodule of right foot HPI Patient presents to clinic for evaluation of right foot She has nodule to the dorsal lateral aspect of right foot. This nodule has been present for about 1 year. Patient states the nod\ule does increase and decrease in size depending on activity. Patient does not really do anything for the pain. PAIN EVALUATION 09/02/2022 1123 Pain Level: 2 Pain Location: Foot-Right Description: Other: See comment patient states it feels like there's a rock in my foot Duration Amount of Time: 1 Duration Units: Years Frequency: Intermittent Intervention/Comfort measure: Reposition;Relaxation Hemoglobin A1C (%) Date Value 05/23/2018 5.0 PCP: Daniel Bowden MD PAST MEDICAL HISTORY Diagnosis Date Hypertension Macromastia Needs 3D tulio for screening, causing neck, back problems, headaches, shoulder pain Current Outpatient Medications Medication Sig triamterene-hydroCHLOROthiazide (DYAZIDE) 37.5-25 mg per capsule Take 1 capsule by mouth once daily. lisinopril (ZESTRIL) 10 mg tablet Take 1 tablet by mouth once daily. PARoxetine (PAXIL) 40 mg tablet Take 1 tablet by mouth once daily. hydrOXYzine HCl (ATARAX) 25 mg tablet Take 1 tablet by mouth at bedtime as needed for anxiety. ibuprofen (MOTRIN) 800 mg ORAL tablet Take 1 tablet by mouth three times daily as needed. FOR PAIN. TAKE WITH FOOD. No current facility-administered medications for this visit. ALLERGIES Allergen Reactions Stadol [Butorphanol] Mental Status Change PAST SURGICAL HISTORY Procedure Laterality Date ANKLE SURGERY HX 06/20/2012 pins put in HYSTEROSCOPY BI TUBE OCCLUSION W/PERM IMPLNTS LAPAROSCOPY DIAGNOSTIC removal of tubes bilaterally. dilation of cervix to relieve hematometria PAST SURGICAL HISTORY OF N/A 01/10/2020 Tummy Tuck REDUCTION OF LARGE BREAST Bilateral 01/10/2020 S THERMACHOICE UTERINE BALLOON TONSILLECTOMY & ADENOIDECTOMY AGE 10/> FAMILY HISTORY Problem Relation Age of Onset None Mother Heart Father Congenital disorder Hypertension Father Social History Tobacco Use Smoking status: Never Smokeless tobacco: Never Substance Use Topics Alcohol use: Yes Comment: Socially Drug use: No REVIEW OF SYSTEMS GENERAL: Negative for Malaise, significant weight loss, fever RESPIRATORY: Negative for cough, wheezing and shortness of breath CARDIOVASCULAR: Negative for chest pain, leg swelling and palpitations GI: Negative for abdominal discomfort, blood in stools or black stools and change in bowel habits : Negative for dysuria, frequency and incontinence MUSCULOSKELETAL: Negative for joint pain or swelling, back pain, and muscle pain. SKIN: Negative for lesions, rash, and itching. HEMATOLOGY/LYMPHOLOGY Negative for prolonged bleeding, bruising easily, and swollen nodes. ENDOCRINE: Negative for cold or heat intolerance, polyuria, polydipsia and goiter. NEURO: negative Physical Exam: Constitutional: Pt is a well developed 47 year old female who is alert, oriented and cooperative Eyes: Following during examination. No redness or drainage. Respiratory: RR normal and nonlabored. Even breathing. No evidence of distress or shortness of breath. Psychology: Patient is engaged during conversation. Normal affect and mood. Does not appear depressed or anxious during encounter. Vascular: Dorsalis pedis and posterior tibial pulses palpable as b/l Capillary Fill time < 5 seconds to digits 1-5 b/l Skin temperature warm to warm proximal to distal b/l Hair growth present to digits Neurological: intact light touch/epicritic sensation b/l intact protective sensation no significant neurological deficits Dermatological: Nails 1-5 b/l appear normal. Webspaces clean and dry 1-4 b/l. Skin appears well hydrated and supple. good color, texture, turgor. No open lesions present. No callosities present. Musculoskeletal/Orthopaedic: Patient has pain to palpation of right lateral 5th metatarsal Foot type is neutral structurally AJ ROM is full with knee extended and flexed 1st MPJ is full when loaded and no pain or crepitus are noted with ROM. MTJ, STJ are full and free of pain and crepitus. +5/5 muscle strength dorsiflexion, plantarflexion, inversion, eversion b/l 2.2 x 2.2 cm nodular mass to the dorsal lateral aspect of right foot along 5th edl. Radiographs: n/a ASSESSMENT: (M67.479) Ganglion cyst of foot (primary encounter diagnosis) PLAN: 1. History and physical examination performed. 2. Patient has nodular cyst along the right 5th EDL at mtpj level. This likely resembles a ganglion cyst 3. Discussed options not limited to aspiration vs aspiration under ultrasound vs surgical excision 4. I prefer to get an MRI to help to identify how large the cyst is, how many lobules are present, the exact location and this will all aide in helping to determine the best course of treatment including surgical excision. Johanna Cronin DPM Podiatry [address] [facility] [address] Dept: [phone] Dept AMB ROOMING INTAKE FLOWSHEET DATA Pain Pain Level: 2 Pain Location: Foot-Right Description: Other: See comment (patient states it feels like there's a rock in my foot ) Duration Amount of Time: 1 Duration Units: Years Frequency: Intermittent Intervention/Comfort measure: Reposition, Relaxation Patient presents with: Right Foot - New Patient, Pain Patient c/o discomfort in R foot. Feels like there is a rock. Sore to touch. Can feel it when she is walking. documented in this encounter [facility] 02-28-2022 Miscellaneous Notes Pt scheduled to see Dr. Bowden today for BP issues. Mar Perkins Ma Summary: New PT 1st Attempt: Called PT to get mother set-up for a new PT appointment with Dr. Bowden for BP issues, LVM. Thanks, LESTER Lamb Yes, I would be willing to see her mother while she is here Daniel Bowden MD See message and advise. Mar Perkins Ma Patient is calling and asking if PCP would take on her Mother with Blood pressure issues. They recently relocated her here to [place] due to other health issues. Please advise if okay to schedule. Roxane stated this would be temporary as they do plan for her mother to return to [place]. documented in this encounter [facility] 09-30-2021 History of Presen t illness Narrative Radiology Service Progress Note PATIENT NAME: Roxane Frederick DATE OF SERVICE: September 30, 2021 TIME: 2:35 PM PATIENT IDENTITY VERIFICATION COMPLETED USING TWO (2) IDENTIFIERS: Name and Date of confirmed by patient verbally. FALL SCREENING: Has the patient had 2 falls in the last year or 1 fall with injury or currently using an Ambulatory Assistive Device (Walker, Cane, Wheelchair, Crutches, etc.)? No PATIENT GENDER DATA: Female. status: : No status: NO. PATIENT RELEVANT IMPLANT DATA REVIEWED: Yes RADIOLOGY DEPARTMENT: Mammography PERIPHERAL IV DATA: Not applicable SIGNED BY: RT Jose(R) September 30, 2021 2:35 PM documented in this encounter [facility] 09-30-2021 Miscellaneous Notes Encounter addended by: RT Jose(R) on: 09/30/2021 2:36 PM Actions taken: Clinical Note Signed documented in this encounter [facility] 09-30-2021 Note Encounter addended b y: RT Jose(R) on: 09/30/2021 2:36 PM Actions taken: Clinical Note Signed [facility] 09-14-2021 History of Presen t illness Narrative Radiology Service Progress Note PATIENT NAME: Roxane Frederick DATE OF SERVICE: September 14, 2021 TIME: 7:49 AM PATIENT IDENTITY VERIFICATION COMPLETED USING TWO (2) IDENTIFIERS: Name and Date of confirmed by patient verbally. FALL SCREENING: Has the patient had 2 falls in the last year or 1 fall with injury or currently using an Ambulatory Assistive Device (Walker, Cane, Wheelchair, Crutches, etc.)? No PATIENT GENDER DATA: Female. status: : No status: NO. PATIENT RELEVANT IMPLANT DATA REVIEWED: Not Applicable RADIOLOGY DEPARTMENT: Mammography PERIPHERAL IV DATA: Not applicable SIGNED BY: RT Kadeem(R) September 14, 2021 7:49 AM documented in this encounter [facility] 06-17-2021 Instructions Kimmie Hale APRN.CNP - 06/17/2021 7:16 AM EDT 1.) Continue to take adipex as prescribed. 2.) Continue to work on eating a whole foods diet. Try to increase protein and veggies. 3.) Follow up in 1 month for weight check. documented in this encounter [facility] 06-17-2021 History of Presen t illness Narrative This is a 46 year old female who presents today with: Patient presents with: Weight Check: Adipex HISTORY OF PRESENT ILLNESS: Roxane Frederick is a 46 year old female. Patient presents with: Weight Check: Adipex In the office for weight check, will be starting 3rd month of adipex. Has been taking Adipex 37.5 mg, last weight check was on May 12. Has been watching diet. Currently not exercising but staying active during the day. No side effects from medication. Tolerating well. No difficulty sleeping or palpitations. Down 3 lbs since last visit. PAST MEDICAL HISTORY: PAST MEDICAL HISTORY Diagnosis Date Hypertension Macromastia Needs 3D tulio for screening, causing neck, back problems, headaches, shoulder pain PAST SURGICAL HISTORY Procedure Laterality Date ANKLE SURGERY HX 06/20/2012 pins put in HYSTEROSCOPY BI TUBE OCCLUSION W/PERM IMPLNTS LAPAROSCOPY DIAGNOSTIC removal of tubes bilaterally. dilation of cervix to relieve hematometria PAST SURGICAL HISTORY OF N/A 01/10/2020 Tummy Tuck REDUCTION OF LARGE BREAST Bilateral 01/10/2020 S THERMACHOICE UTERINE BALLOON TONSILLECTOMY & ADENOIDECTOMY AGE 10/> ALLERGIES Stadol [Butorphanol] MEDICATIONS Current Outpatient Medications Medication Sig triamterene-hydroCHLOROthiazide 37.5-25 mg per capsule Take 1 capsule by mouth once daily. sertraline (ZOLOFT) 50 mg tablet Take 1 tablet by mouth once daily. Take along with the 100 mg tablet for a total of 150 mg daily sertraline (ZOLOFT) 100 mg tablet Take 1 tablet by mouth once daily. lisinopril (ZESTRIL, PRINIVIL) 10 mg tablet Take 1 tablet by mouth once daily. ibuprofen (MOTRIN) 800 mg ORAL tablet Take 1 tablet by mouth three times daily as needed. FOR PAIN. TAKE WITH FOOD. No current facility-administered medications for this visit. FAMILY HISTORY Problem Relation Age of Onset None Mother Heart Father Congenital disorder Hypertension Father Social History Tobacco Use Smoking status: Never Smoker Smokeless tobacco: Never Used Substance Use Topics Alcohol use: Yes Comment: Socially Drug use: No REVIEW OF SYSTEMS GENERAL: No weight loss, malaise or fevers/chills HEENT: Negative for frequent or significant headaches, No changes in hearing or vision. NECK: Negative for lumps, goiter, pain and significant neck swelling RESPIRATORY: Negative for cough, hemoptysis, wheezing, dyspnea or shortness of breath CARDIOVASCULAR: Negative for chest pain, leg swelling, orthopnea, or palpitations GI: No nausea, vomiting, or diarrhea/constipation. No hematochezia/melena. No heartburn or reflux symptoms. : No history of dysuria, frequency or incontinence MUSCULOSKELETAL: Negative for joint pain or swelling. SKIN: Negative for lesions, rash, and itching ENDOCRINE: Negative for cold or heat intolerance, polyuria, polydipsia and goiter NEURO: No history of headaches, syncope, paralysis, seizures or tremors MOOD: Negative for depression, anxiety, or suicidal ideation. EXAM: BP 110/80 Pulse 70 Resp 18 Wt 78 kg (172 lb) LMP 04/27/2013 BMI 33.59 kg/m PHYSICAL EXAM: General Appearance: Well appearing, alert, in no acute distress, well-hydrated, well nourished. Skin: Skin color, texture, turgor normal, no suspicious rashes or lesions. Head: Normocephalic, no masses, lesions, tenderness or abnormalities. Eyes: Anicteric sclera. Extraocular movements are intact. Neck: Supple, no adenopathy; thyroid symmetric, normal size, no bruits. Lungs: Lungs clear to auscultation. No wheezing, rhonchi, rales. Heart: RRR without murmur, gallop, or rubs. No ectopy. Extremities: No deformities, edema, skin discoloration, clubbing or cyanosis. Good capillary refill. Peripheral Pulses: Normal, Capillary refill <2secs, strong peripheral pulses, Pulses palpable. ASSESSMENT/PLAN: 1. Obesity, Class II, BMI 35-39.9 - ICD9: 278.00, ICD10: E66.9 Weight decreasing - Continue current medications - Work on eating a well balanced diet - Try to get some form of exercise. - PHENTERMINE 37.5 MG TABLET Follow-up in 1 month or sooner as needed. Discussed treatment plan and patient voices understanding. Patient's questions answered appropriately. Medications and potential side effects were discussed and patient voices understanding. Kimmie Hale APRN.PATCH SANDER This note was partially generated using Make Meaning voice recognition system. Note was reviewed for accuracy. There may be minor misspellings or grammar miscues with Make Meaning voice recognition. documented in this encounter [facility] Evaluation note Diagnosis Obesity, Class II, BMI 35-39.9- Primary Obesity, unspecified [facility] Encounter for screening [facility] for [facility] Diagnosis Encounter for screening [facility] for [facility] Diagnosis Ganglion cyst of foot- Primary [facility] Diagnosis Anxiety with depression- Primary Hot flashes Symptomatic menopausal or female climacteric states Vaginal dryness Other specified symptom associated with female genital organs [facility] Diagnosis Ganglion cyst of foot- Primary [facility] Diagnosis NO SHOW- Primary [facility] Diagnosis Acute cystitis without hematuria- Primary Acute cystitis [facility] Diagnosis Hot flashes Symptomatic menopausal or female climacteric states Anxiety with depression [facility] Diagnosis Anxiety with depression Difficulty sleeping Sleep disturbance, unspecified [facility] Diagnosis Encounter for screening mammogram for breast cancer [facility] Diagnosis Ganglion cyst of foot [facility] Diagnosis Abnormal mammogram Abnormal mammogram, unspecified [facility] Diagnosis Essential hypertension Unspecified essential hypertension [facility] Diagnosis Wellness examination- Primary Enlarged uterus Hypertrophy of uterus Night sweats Generalized hyperhidrosis Essential hypertension Unspecified essential hypertension Anxiety with depression Hot flashes Symptomatic menopausal or female climacteric states Class 1 obesity with body mass index (BMI) of 31.0 to 31.9 in adult, unspecified obesity type, unspecified whether serious comorbidity present Nodule of skin of foot Screening for depression Encounter for screening examination for other mental health and behavioral disorders documented in this encounter [facility] for referral (narrative)* Diagnostic Procedure Only (Routine) - Pending Review Specialty Diagnoses / Procedures Referred By Alicia hamm Referred To Contact [facility] Diagnoses Encounter for screening mammogram for breast cancer Procedures ELOISE SCREENING SCREENING MAMMOGRAPHY BI 2-VIEW BREAST INC Daniel Last MD [address] [place] [address] [facility] [address] [place] [address] Referral ID Status Reason Start Date Expiration Date Visits Requested Visits Authorized [id number] Pending Review Auto-Generat ed Referral 08/18/2021 09/17/2022 1 1 T [facility] for referral (narrative)* Diagnostic Procedure Only (Routine) - Closed Specialty Diagnoses / Procedures Referred By Alicia hamm Referred To Contact [facility] Diagnoses Encounter for screening mammogram for breast cancer Procedures ELOISE SCREENING SCREENING MAMMOGRAPHY BI 2-VIEW BREAST INC Daniel Last MD [address] [place] [address] [facility] [address] [place] [address] Referral ID Status Reason Start Date Expiration Date V isits Requested Visits Authorized [id number] Closed Auto-Generate d Referral 08/18/2021 09/17/2022 1 1 T [facility] for referral (narrative)* Diagnostic Procedure Only (Routine) - Authorized Specialty Diagnoses / Procedures Referred By Alicia hamm Referred To Contact [facility] Diagnoses Ganglion cyst of foot Procedures US ASP/INJ GANGLION RIGHT ASPIRATION&/INJECTION GANGLION CYST ANY LOCATJ Testrake, Johanna [address] [place] [address] [place] [address] Referral ID Status Reason Start Date Expiration Date Visits Requested Visits Authorized [id number] Authorized Auto-Generat ed Referral 11/23/2022 12/23/2023 1 1 [facility] for referral (narrative)* Diagnostic Procedure Only (Routine) - Pending Review Specialty Diagnoses / Procedures Referred By Contac t Referred To Contact [facility] Diagnoses Encounter for screening mammogram for breast cancer Procedures ELOISE SCREENING W TULIO SCREENING DIGITAL BREAST TOMOSYNTHESIS BI SCREENING MAMMOGRAPHY BI 2-VIEW BREAST INC [facility] Daniel Bowden MD [address] [place] [address] [facility] [address] [facility] [address] Referral ID Status Reason Start Date Expiration Date Visits Requested Visits Authorized [id number] Pending Review Auto-Generat ed Referral 08/16/2023 09/14/2024 1 1 T [facility] for referral (narrative)* Diagnostic Procedure Only (Routine) - Closed Specialty Diagnoses / Procedures Referred By Contac t Referred To Contact [facility] Diagnoses Ganglion cyst of foot Procedures US ASP/INJ GANGLION RIGHT ASPIRATION&/INJECTION GANGLION CYST ANY Johanna Vásquez [address] [place] [address] [place] [address] Referral ID Status Reason Start Date Expiration Date V isits Requested Visits Authorized [id number] Closed Auto-Generate d Referral 11/23/2022 12/23/2023 1 1 [facility] for referral (narrative)* Diagnostic Procedure Only (Routine) - Closed Specialty Diagnoses / Procedures Referred By Contac t Referred To Contact [facility] Diagnoses Abnormal mammogram Procedures ELOISE DIAGNOSTIC LT DIAGNOSTIC MAMMOGRAPHY COMPUTER-AIDED DETCJ Daniel Camarillo MD [address] [place] [address] [facility] [address] [place] [address] Referral ID Status Reason Start Date Expiration Date V isits Requested Visits Authorized [id number] Closed Auto-Generate d Referral 09/14/2021 10/14/2022 1 1 [facility] for visit Narrative* Diagnostic Procedure Only (Routine) - Closed Specialty Diagnoses / Procedures Referred By Alicia hamm Referred To Contact [facility] Diagnoses Encounter for screening mammogram for breast cancer Procedures ELOISE SCREENING SCREENING MAMMOGRAPHY BI 2-VIEW BREAST INC [facility] Daniel Bowden MD [address] [place] [address] [facility] [address] [place] [address] Referral ID Status Reason Start Date Expiration Date V isits Requested Visits Authorized [id number] Closed Auto-Generate d Referral 08/18/2021 09/17/2022 1 1 [facility] for visit Narrative* Diagnostic Procedure Only (Routine) - Closed Specialty Diagnoses / Procedures Referred By Alicia hamm Referred To Contact [facility] IMAGING Diagnoses Ganglion cyst of foot Procedures US ASP/INJ GANGLION RIGHT ASPIRATION&/INJECTION GANGLION CYST ANY LOCJohanna Lee [address] [place] [address] 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 Advance Directive(s) 02/19/2016 9:10 PM Reason for Referral Specialty Diagnoses / Procedures Referred By Alicia hamm Referred To Contact [facility] Diagnoses Ganglion cyst of foot Procedures MRI ANKLE WO/W IVCON RIGHT MRI ANY JT LOWER EXTREM W/O & W/CONTRAST Johanna Martin [address] [place] [address] [facility] Referral ID Status Reason Start Date Expiration Date Visits Requested Visits Authorized [id number] Authorized Auto-Generat ed Referral 09/02/2022 10/02/2023 1 1 Additional Source Comments INFORMATION SOURCE (unrecogn ized section and content) DATE CREATED AUTHOR 03/23/2021 [employer] DATE CREATED AUTHOR AUTHOR'S ORGANIZ ATION 12/01/2023 [facility] Care Teams (unrecognized sec tion and content) Tire Finisher Relationship Specialty Start Date End Date Bill Munoz, SENIOR DOT NET DEVELOPER-PATCH SANDER [address] [address] ADJUSTMENT SUPERVISOR Plastic Surgery 11/26/19 Paz Asif MD [address] [place] [address] Physician Plastic Surgery 11/26/19 Deb Erwin SENIOR DOT NET DEVELOPER-PATCH SANDER [address] [place] [address] ADJUSTMENT SUPERVISOR Anesthesiology 01/24/20 Tire Finisher Relationship Specialty Start Date End Date Daniel Bowden MD [address] [place], [place] [id number] PCP - General 01/02/09 Tire Finisher Relationship Specialty Start Date End Date Daniel Bowden MD [address] [place] [address] PCP - General 01/02/09 Tire Finisher Relationship Specialty Start Date End Date Daniel Bowden MD [address] [place], [place] [phone] PCP - General 01/02/09 Tire Finisher Relationship Specialty Start Date End Date Bill Munoz SENIOR DOT NET DEVELOPER-PATCH SANDER [address] [facility] [address] [address] ADJUSTMENT SUPERVISOR Plastic Surgery 11/26/19 Paz Asif MD [address] [place] [address] Physician Plastic Surgery 11/26/19 Deb Erwin, SENIOR DOT NET DEVELOPER-PATCH SANDER [address] [place] [address] ADJUSTMENT SUPERVISOR Anesthesiology 01/24/20 Tire Finisher Relationship Specialty Start Date End Date Daniel Bowden MD [address] [place] [address] PCP - General 01/02/09 Tire Finisher Relationship Specialty Start Date End Date Daniel Bowden MD [address] [place] [address] PCP - General 01/02/09 Tire Finisher Relationship Specialty Start Date End Date Daniel Bowden MD [address] [place] [address] PCP - General 01/02/09 Tire Finisher Relationship Specialty Start Date End Date Daniel Bowden MD [address] [place] [address] PCP - General 01/02/09 Tire Finisher Relationship Specialty Start Date End Date Daniel Bowden MD [address] [place] [address] PCP - General 01/02/09 Tire Finisher Relationship Specialty Start Date End Date Daniel Bowden MD [address] [place] [address] PCP - General 01/02/09 Tire Finisher Relationship Specialty Start Date End Date Daniel Bowden MD [address] [place] [address] PCP - General 01/02/09 Tire Finisher Relationship Specialty Start Date End Date Daniel Bowden MD [address] [place] [address] PCP - General 01/02/09 Tire Finisher Relationship Specialty Start Date End Date Daniel Bowden MD [address] [place] [address] PCP - General 01/02/09 Tire Finisher Relationship Specialty Start Date End Date Bill Munoz SENIOR DOT NET DEVELOPER-PATCH SANDER [address] [address] ADJUSTMENT SUPERVISOR Plastic Surgery 11/26/19 Paz Asif MD [address] [place] [address] Physician Plastic Surgery 11/26/19 Deb Erwin SENIOR DOT NET DEVELOPER-PATCH SANDER [address] [facility] [place] [address] ADJUSTMENT SUPERVISOR Anesthesiology 01/24/20 Tire Finisher Relationship Specialty Start Date End Date Daniel Bowden MD [address] [place] [address] PCP - General 01/02/09 Tire Finisher Relationship Specialty Start Date End Date Daniel Bowden MD [address] [place] [address] PCP - General 01/02/09 Tire Finisher Relationship Specialty Start Date End Date Daniel Bowden MD [address] [place], [place] [address] PCP - General 01/02/09 Tire Finisher Relationship Specialty Start Date End Date Daniel Bowden MD [address] [place], [place] [address] PCP - General 01/02/09 Tire Finisher Relationship Specialty Start Date End Date Daniel Bowden MD [address] [place], [place] [id number] PCP - General 01/02/09 Tire Finisher Relationship Specialty Start Date End Date Daniel Bowden MD [address] [place], [place] [id number] PCP - General 01/02/09 Source Comments (unrecognize d section and content) In the event this informatio n is protected by the Federal Confidentiality of Alcohol and Drug Abuse Patient Records regulations: The Federal rules restrict any use of the information to criminally investigate or prosecute any alcohol or drug abuse patient.[facility] the event this information is protected by the Federal Confidentiality of Alcohol and Drug Abuse Patient Records regulations: The Federal rules restrict any use of the information to criminally investigate or prosecute any alcohol or drug abuse patient.[facility] CenterIn the event this information is protected by the Federal Confidentiality of Alcohol and Drug Abuse Patient Records regulations: The Federal rules restrict any use of the information to criminally investigate or prosecute any alcohol or drug abuse patient.[facility] Center[facility] the event this information is protected by the Federal Confidentiality of Alcohol and Drug Abuse Patient Records regulations: The Federal rules restrict any use of the information to criminally investigate or prosecute any alcohol or drug abuse patient.[facility] Center[facility] the event this information is protected by the Federal Confidentiality of Alcohol and Drug Abuse Patient Records regulations: The Federal rules restrict any use of the information to criminally investigate or prosecute any alcohol or drug abuse patient.[facility] Center[facility] the event this information is protected by the Federal Confidentiality of Alcohol and Drug Abuse Patient Records regulations: The Federal rules restrict any use of the information to criminally investigate or prosecute any alcohol or drug abuse patient.[facility] Center[facility] the event this information is protected by the Federal Confidentiality of Alcohol and Drug Abuse Patient Records regulations: The Federal rules restrict any use of the information to criminally investigate or prosecute any alcohol or drug abuse patient.[facility] Center[facility] the event this information is protected by the Federal Confidentiality of Alcohol and Drug Abuse Patient Records regulations: The Federal rules restrict any use of the information to criminally investigate or prosecute any alcohol or drug abuse patient.[facility] Center[facility] the event this information is protected by the Federal Confidentiality of Alcohol and Drug Abuse Patient Records regulations: The Federal rules restrict any use of the information to criminally investigate or prosecute any alcohol or drug abuse patient.[facility] CenterIn the event this information is protected by the Federal Confidentiality of Alcohol and Drug Abuse Patient Records regulations: The Federal rules restrict any use of the information to criminally investigate or prosecute any alcohol or drug abuse patient.[facility] Center[facility] the event this information is protected by the Federal Confidentiality of Alcohol and Drug Abuse Patient Records regulations: The Federal rules restrict any use of the information to criminally investigate or prosecute any alcohol or drug abuse patient.[facility] Center[facility] the event this information is protected by the Federal Confidentiality of Alcohol and Drug Abuse Patient Records regulations: The Federal rules restrict any use of the information to criminally investigate or prosecute any alcohol or drug abuse patient.[facility] Center[facility] the event this information is protected by the Federal Confidentiality of Alcohol and Drug Abuse Patient Records regulations: The Federal rules restrict any use of the information to criminally investigate or prosecute any alcohol or drug abuse patient.[facility] CenterIn the event this information is protected by the Federal Confidentiality of Alcohol and Drug Abuse Patient Records regulations: The Federal rules restrict any use of the information to criminally investigate or prosecute any alcohol or drug abuse patient.[facility] CenterIn the event this information is protected by the Federal Confidentiality of Alcohol and Drug Abuse Patient Records regulations: The Federal rules restrict any use of the information to criminally investigate or prosecute any alcohol or drug abuse patient.[facility] CenterIn the event this information is protected by the Federal Confidentiality of Alcohol and Drug Abuse Patient Records regulations: The Federal rules restrict any use of the information to criminally investigate or prosecute any alcohol or drug abuse patient.[facility] CenterIn the event this information is protected by the Federal Confidentiality of Alcohol and Drug Abuse Patient Records regulations: The Federal rules restrict any use of the information to criminally investigate or prosecute any alcohol or drug abuse patient.[facility] CenterIn the event this information is protected by the Federal Confidentiality of Alcohol and Drug Abuse Patient Records regulations: The Federal rules restrict any use of the information to criminally investigate or prosecute any alcohol or drug abuse patient.[facility] CenterIn the event this information is protected by the Federal Confidentiality of Alcohol and Drug Abuse Patient Records regulations: The Federal rules restrict any use of the information to criminally investigate or prosecute any alcohol or drug abuse patient.[facility] Reason for Visit (unrecogniz ed section and content) Reason Comments Weight Check Adipex Reason Comments New Patient Reason Comments New Patient Pain Specialty Diagnoses / Procedures Referred By Contac t Referred To Contact Podiatry Diagnoses Nodule of skin of foot Procedures CONSULT TO PODIATRY OFFICE/OUTPATIENT NEW HIGH MDM 60-74 MINUTES Kimmie Hale APRN.PATCH SANDER [address] [place] [address] Referral ID Status Reason Start Date Expiration Date Visits Requested Visits Authorized [id number] Pending Review PCP Requested Referral 08/31/2022 08/31/2023 1 1 Reason Comments Follow Up med check Reason Comments Results Labs Reason Comments Established Patient Pain Swelling Reason Comments Appointment Reason Comments Dysuria Reason Onset Date Comments Refill Request 03/25/2023 Reason Comments Radiology Mammogram Specialty Diagnoses / Procedures Referred By Contac t Referred To Contact BR IMAGING Diagnoses Abnormal mammogram Procedures US BREAST LTD LT US BREAST UNI REAL TIME WITH IMAGE LIMITED Daniel Bowden MD [address] [place] [address] [facility] [address] [facility] [address] Referral ID Status Reason Start Date Expiration Date V isits Requested Visits Authorized [id number] Closed Auto-Generate d Referral 09/14/2021 10/14/2022 1 1 Reason Onset Date Comments Refill Request 11/27/2023 Reason Comments Physical FOR RECORDS PERTAINING TO PATIENTS WHO ARE OR HAVE BEEN ENROLLED IN A CHEMICAL DEPENDENCY/SUBSTANCEABUSE PROGRAM, SOME INFORMATION MAY BE OMITTED. This clinical summary was aggregated from multiple sources. Caution should be exercised in using it in the provision of clinical care. This summary normalizes information from multiple sources, and as a consequence, information in this document may materially change the coding, format and clinical context of patient data. In addition, data may be omitted in some cases. CLINICAL DECISIONS SHOULD BE BASED ON THE PRIMARY CLINICAL RECORDS. [facility] [employer] provides no warranty or guarantee of the accuracy or completeness of information in this document.
== END | disposition home or self-care (01) ==
LOC: LABSPEC 10:10
PROVIDERS: PCP Family Medicine; Referring Provider Obstetrics & Gynecology; Visit Provider Obstetrics & Gynecology
DX: N93.9 Abnormal uterine and vaginal bleeding, unspecified (principal)
CPT/HCPCS: 88305

== ENCOUNTER → 2024-11-21 | Outpatient (CLI) | payer OTHER, SELFPAY ==
[2024-11-21 11:41] LABS: Hematocrit 37.8 % (37-47); Hemoglobin 13.5 g/dL (12.0-15.0); Immature Granulocytes Count 0.010 X10^3/uL (0.0-0.0); Mean Corp Hgb Conc 35.7 g/dL (32-36); Mean Corpuscular Volume 84.8 fL (81-99); Mean Platelet Vol. 8.6 fl (6.2-12.0); NRBC Flagged by Analyzer 0 % (0-5); Platelet Count 286 K/mm3 (150-450); RBC Distribution Width CV 12.3 % (11.6-14.6); RBC Distribution Width SD 37.5 fl (35.1-43.9); Red Blood Count 4.46 M/mm3 (4.2-5.4); White Blood Count 6.0 K/mm3 (4.4-11.0)
[2024-11-21 12:28] LABS: AST(SGOT) 14 U/L (<=31); Alanine Aminotransfer ALT/SGPT 13 U/L (<=34); Albumin, Serum 4.8 g/dL (3.5-5.0); Alkaline Phosphatase 50 U/L (35-104); Anion Gap 14 (5-15); BUN 18 mg/dL (4-19); BUN/Creat Ratio 20.7 RATIO (10-20); Calcium,Total 9.5 mg/dL (7.6-11.0); Carbon Dioxide 22.9 mmol/L (21.0-32.0); Chloride 102 mmol/L (98-108); Cholesterol 241 mg/dL (<=200); Ferritin 115 ng/mL (22-378); Globulin 2.3 g/dL (2.2-4.2); Glucose 91 mg/dL (70-99); Low Density Lipoprotein Calc. 143 mg/dL; Potassium 3.9 mmol/L (3.3-5.1); Triglycerides 63 mg/dL; Very Low Density Lipoprotein 13 mg/dL (5-40); Vitamin B12 794 pg/mL (180-914); Vitamin D,25 Hydroxy 73.0 ng/mL (30-100); cholesterol:hdl ratio screen 2.82
[2024-11-21 12:31] LABS: FOLATES,SERUM (FOLIC ACID) 8.37 ng/mL (4.60-34.80)
[2024-11-21 13:12] LABS: Iron 79 ug/dL (50-170); Iron Binding Capacity,Total 284 ug/dL (250-450); Iron Binding Capacity,Unsat 205 ug/dL (228-428)
[2024-11-27 11:08] LABS: Testosterone, % Free 1.80 % (0.50-2.80); Testosterone, Free 0.14 ng/dL (0.10-0.85)
== END | disposition home or self-care (01) ==
PROVIDERS: PCP Family Medicine; Referring Provider Nurse Practitioner Family; Visit Provider Nurse Practitioner Family
DX: R68.82 Decreased libido (principal); I10 Essential (primary) hypertension; Z13.1 Encounter for screening for diabetes mellitus; R53.83 Other fatigue
CPT/HCPCS: 36415; 80053; 80061; 82306; 82607; 82728; 82746; 83036; 83540; 83550; 84402; 84403; 84443; 85025

== ENCOUNTER → 2024-12-02 | Outpatient (CLI) | payer OTHER, SELFPAY | END | disposition home or self-care (01) | PROVIDERS: PCP Family Medicine | DX: R68.82 Decreased libido (principal) | CPT/HCPCS: 36415; 84270 ==